=== PATIENT | female | born 1940 | race Caucasian/White ===

== ENCOUNTER 2016-07-25 10:25 | Outpatient (CLI) | payer MEDICARE, OTHER ==
[2016-07-25] MEDS ORDERED: IOPAMIDOL-300 50 ML VIAL PO ONE (12:14)
[2016-07-25] MEDS ORDERED: IOPAMIDOL-300 100 ML VIAL IVP ONE (12:14)
== END 2016-07-25 10:26 | disposition home or self-care (01) ==
DX: C56.9 Malignant neoplasm of unspecified ovary (principal); R16.1 Splenomegaly, not elsewhere classified; R19.04 Left lower quadrant abdominal swelling, mass and lump

== ENCOUNTER 2016-12-14 11:36 | Outpatient (CLI) | payer MEDICARE, OTHER ==
[2016-12-14] MEDS ORDERED: IOPAMIDOL-300 50 ML VIAL PO ONE (14:16)
[2016-12-14] MEDS ORDERED: IOPAMIDOL-300 100 ML VIAL IVP ONE (14:16)
--- NOTE | 2016-12-15 18:03 | CT Report ---
EXAM: CT CHEST EXAM DATE: 12/14/2016 02:16 PM. CLINICAL HISTORY: Ovarian cancer. COMPARISONS: 09/07/2015. TECHNIQUE: Routine helical CT imaging was performed through the chest. IV contrast: 100 mL of Isovue- 300. Reconstructions: Coronal and sagittal. In accordance with CT protocol optimization, one or more of the following dose reduction techniques w ere utilized for this exam: automated exposure control, adjustment of mA and/or KV based on patient s ize, or use of iterative reconstructive technique. FINDINGS: Lungs/Pleura: No nodules, bronchial thickening, consolidation, or edema. Pulmonary vasculature is nor mal. No pericardial or pleural effusion. No pneumothorax. Mediastinum: Aortic and coronary artery calcification noted.. No adenopathy or masses. The heart and great vessels are normal. Bones: Unremarkable. Upper Abdomen: Enlarging subcapsular splenic cystic collections. Other: Stable right thyroid nodularity. Fat stranding and air bubbles associated with right chest wal l port compatible with recent placement. Complex 2 cm fluid collection in the left breast compatible with prior surgery. 7 mm nodule in the lower outer right breast. IMPRESSION: 1. No sign of metastatic disease in the chest. 2. Evidence of recent right chest wall port placement. 3. Enlarging right breast nodule, and complex fluid collection in the left breast compatible with magnolia or biopsy. 4. Enlarging subcapsular fluid collections in the spleen. [facility] Referring Provider Line: [phone] SITE ID: [id number]
--- NOTE | 2016-12-18 12:48 | CT Report ---
REVISED: THIS REPORT WAS ORIGINALLY SIGNED ON 12/15/16 @ 1803. ORDERS LINKED ON 12/18/2016. EXAM: [id number] CT/TW ([id number]) EXAM: CT CHEST EXAM DATE: 12/14/2016 02:16 PM. CLINICAL HISTORY: Ovarian cancer. COMPARISONS: 09/07/2015. TECHNIQUE: Routine helical CT imaging was performed through the chest. IV contrast: 100 mL of Isovue-300. Reconstructions: Coronal and sagittal. In accordance with CT protocol optimization, one or more of the following dose reduction techniques were utilized for this exam: automated exposure control, adjustment of mA and/or KV based on patient size, or use of iterative reconstructive technique. FINDINGS: Lungs/Pleura: No nodules, bronchial thickening, consolidation, or edema. Pulmonary vasculature is normal. No pericardial or pleural effusion. No pneumothorax. Mediastinum: Aortic and coronary artery calcification noted.. No adenopathy or masses. The heart and great vessels are normal. Bones: Unremarkable. Upper Abdomen: Enlarging subcapsular splenic cystic collections. Other: Stable right thyroid nodularity. Fat stranding and air bubbles associated with right chest wall port compatible with recent placement. Complex 2 cm fluid collection in the left breast compatible with prior surgery. 7 mm nodule in the lower outer right breast. IMPRESSION: 1. No sign of metastatic disease in the chest. 2. Evidence of recent right chest wall port placement. 3. Enlarging right breast nodule, and complex fluid collection in the left breast compatible with prior biopsy. 4. Enlarging subcapsular fluid collections in the spleen. [facility] Referring Provider Line: [phone] SITE ID: [id number] Cold Press Operator: Reading Radiologist: Juan Diego Castillo MD Releasing Radiologist: Juan Diego Castillo MD Released Date Time: 12/15/161802 cc: Catalina Keita DO; Steve Valdez MD ADDENDUM ADDENDUM: 12/15/16 18:29 CT abdomen and pelvis with contrast: Scans are continued through the abdomen and pelvis after 100 mL of Isovue-300 with coronal and sagittal reformations. COMPARISON: 07/25/2016. FINDINGS: In the liver, stable subcentimeter low densities. The multilocular complex fluid collection in the spleen is larger, 6.1 cm across. The pancreas, adrenals, and kidneys are unremarkable. Small gallstones. No dilated ducts. No aortic enlargement, noting atherosclerotic calcification. Mild diverticulosis without diverticulitis. Calcified mesenteric lymph nodes. No adenopathy identified. No free air or free fluid. In the pelvis, hysterectomy noted. Unremarkable bladder. Enlarging lobular heterogeneously enhancing cul-de-sac mass, measuring roughly 5.1 x 6.1 x 5.3 cm. Enlarging soft tissue mass to the right of the cul-de-sac mass 3.0 x 3.1 x 2.6 cm. Stable soft tissue nodule along the right anterior bladder margin, measuring 2.3 x 2.0 x 2.2 cm. IMPRESSION: 1. Stable tiny subcentimeter low densities in the liver. 2. Mildly enlarging lobular complex splenic fluid collection. 3. Gallstones in the gallbladder. 4. Mildly enlarging heterogeneously enhancing cul-de-sac mass. 5. Stable soft tissue nodule along the right anterior bladder margin. 6. Enlarging mass to the right of the cul-de-sac abnormality. Referring Provider Line: [phone] SITE ID: [id number] Addendum Cold Press Operator: Addendum Reading Radiologist: Juan Diego Castillo MD Addendum Releasing Radiologist: Juan Diego Castillo MD Addendum Released Date Time: 12/15/161900 [facility]
== END 2016-12-14 11:37 | disposition home or self-care (01) ==
LOC: DI 11:36
PROVIDERS: ATTEND Specialist
DX: C56.1 Malignant neoplasm of right ovary (principal); N63 Unspecified lump in breast; K80.20 Calculus of gallbladder without cholecystitis without obstruction
CPT/HCPCS: 71260; 74177; Q9967

== ENCOUNTER 2017-02-03 08:29 | Outpatient (CLI) | payer MEDICARE, OTHER | END 2017-02-03 08:30 | disposition home or self-care (01) | LOC: DI 08:29 | PROVIDERS: ATTEND Internal Medicine Hematology & Oncology | DX: C56.9 Malignant neoplasm of unspecified ovary (principal) | CPT/HCPCS: 93306 ==

== ENCOUNTER 2017-07-11 11:16 | Outpatient (CLI) | payer MEDICARE, OTHER | END 2017-07-11 11:17 | disposition home or self-care (01) | LOC: DI 11:16 | PROVIDERS: ATTEND Internal Medicine Hematology & Oncology | DX: C56.9 Malignant neoplasm of unspecified ovary (principal) | CPT/HCPCS: 93306 ==

== ENCOUNTER 2017-07-30 07:36 | Outpatient (CLI) | payer MEDICARE, OTHER ==
[2017-07-30 12:55] LABS: CHOL/HDL RATIO 3.4 (<4.4); CHOLESTEROL 205 mg/dL; HDL CHOLESTEROL 60 mg/dL; LDL CHOLESTEROL,CALCULATED 121 mg/dL; VLDL CHOLESTEROL 24 mg/dL
== END 2017-07-30 07:37 | disposition home or self-care (01) ==
LOC: LAB.WCP 07:36
PROVIDERS: ATTEND Family Medicine
DX: E78.5 Hyperlipidemia, unspecified (principal); E55.9 Vitamin D deficiency, unspecified; I49.9 Cardiac arrhythmia, unspecified
CPT/HCPCS: 36415; 80061; 82306; 83721; 84443

== ENCOUNTER 2017-09-02 20:59 | Outpatient (CLI) | payer MEDICARE, OTHER ==
--- NOTE | 2017-09-02 23:19 | Ultrasound Preliminary Report ---
Exam: US DUPLEX EXT VEINS LEFT IMPRESSION: No evidence for deep venous thrombosis. See above. [facility] SITE ID: [id number]
--- NOTE | 2017-09-02 23:20 | Ultrasound Report ---
EXAM: LEFT LOWER EXTREMITY VENOUS ULTRASOUND EXAM DATE: 09/02/2017 09:40 PM. CLINICAL HISTORY: ANKLE PAIN, LEFT,LYMPHEDEMA,HX PULMONARY EMBOLISM. COMPARISON: 10/05/2015 ultrasound duplex extremity veins left. TECHNIQUE: Real-time sonographic vascular imaging was performed by the electric motor controls assembler through the lower extremity utilizing both color-flow and Doppler spectral analysis. Multiple service center representative static julieta ges were saved for review. FINDINGS: Common Femoral Vein (CFV): Normal. CFV-GSV Junction: Normal. Profunda Femoral Vein (PFV): Normal. Femoral Vein (FV) Prox: Normal. Femoral Vein (FV) Mid: Normal. Femoral Vein (FV) Dist: Normal. Popliteal Vein: Normal. Posterior Tibial Veins: Normal. Peroneal Veins: Normal. Limited visualization. IMPRESSION: No evidence for deep venous thrombosis. See above. [facility] Referring Provider Line: [phone] SITE ID: [id number]
== END 2017-09-02 21:00 | disposition home or self-care (01) ==
LOC: DI 20:59
PROVIDERS: ATTEND Family Medicine
DX: M25.572 Pain in left ankle and joints of left foot (principal); I89.0 Lymphedema, not elsewhere classified; Z86.711 Personal history of pulmonary embolism

== ENCOUNTER 2018-07-04 14:13 | Outpatient (CLI) | payer MEDICARE, OTHER | END 2018-07-04 14:14 | disposition critical access hospital (66) | LOC: EMS 14:13 | PROVIDERS: ATTEND Surgery | DX: R47.89 Other speech disturbances (principal) | CPT/HCPCS: A0425; A0429 ==

== ENCOUNTER 2018-07-04 14:28 | Emergency (ER) | payer MEDICARE, OTHER ==
--- NOTE | 2018-07-04 15:09 | ED Physician Documentation ---
PD HPI ALTERED MENTAL STATUS - Stated complaint Stated Complaint: CVA SX 2 TO 3 DAYS - Chief complaint Chief Complaint: Neuro - History obtained from History obtained from: Patient, Family - History of Present Illness Timing - onset: How many days ago (2-3 days of seeming to have incomplete thoughts, with some word search or distracted incomplete sentences. Today had an episode of seeming more confused when standing/walking in house, lasted few minutes. She was eating then at the time and seemed to improved shortly after. No facial droop nor unilateral weakness, per ammunition and explosives handler in ER.) Timing - duration: Days (2-3) Timing - details: Gradual onset, Waxing and waning Quality / character: Confused (with mostly trouble completing sentences, word search.) Associated symptoms: No: Fever, Headache, Dyspnea, Cough, NVD Contributing factors: No: Anticoagulated, Diabetic, Recent med change, Recent illness Basline status: Alert and oriented X 3, Ambulatory Similar symptoms before: Has not had sx before Recently seen: Not recently seen Review of Systems Ten Systems: 10 systems reviewed and negative Constitutional: denies: Fever Nose: denies: Rhinorrhea / runny nose, Congestion Throat: denies: Sore throat Respiratory: denies: Cough GI: denies: Vomiting, Diarrhea Skin: denies: Rash, Lesions Musculoskeletal: denies: Neck pain, Back pain Neurologic: reports: Difficulty speaking, Confused (briefly today). denies: Generalized weakness, Focal weakness, Numbness, Near syncope, Altered mental status, Headache PD PAST MEDICAL HISTORY - Past Medical History Cardiovascular: High cholesterol Respiratory: Sleep apnea, CPAP use Endocrine/Autoimmune: None GI: Chronic constipation UNIT CONTROL CLERK: Ovarian cancer : None HEENT: Other Psych: None Musculoskeletal: Osteoarthritis, Osteoporosis Derm: Other - Past Surgical History Past Surgical History: Yes General: Appendectomy, Colonoscopy Ortho: Other /UNIT CONTROL CLERK: Hysterectomy, Oophrectomy HEENT: Cataracts Derm: Skin cancer surgery - Present Medications Home Medications: Ambulatory Orders Medication Instructions Recorded Confirmed Aspirin 81 mg PO DAILY PM 02/25/14 07/04/18 Simvastatin 10 mg PO DAILY 02/25/14 07/04/18 Cholecalciferol (Vitamin D3) 800 unit PO DAILY 04/17/16 07/04/18 [Vitamin D] Rivaroxaban [Xarelto] 20 mg PO ONCE PRN 01/13/17 07/04/18 Atenolol 25 mg PO DAILY 06/23/17 07/04/18 Polyethylene Glycol 3350 [Miralax] 17 gm PO DAILY 10/20/17 06/15/18 Sennosides [Senna] 1 tab PO DAILY PRN 10/20/17 07/04/18 Multivitamin [Multivitamins] 1 tab ORAL DAILY 02/23/18 07/04/18 amLODIPine [Norvasc] 5 mg ORAL DAILY 05/01/18 07/04/18 - Allergies Allergies/Adverse Reactions: Allergies Allergy/AdvReac Type Severity Reaction Status Date / Time Sulfa (Sulfonamide Allergy Mild Rash Verified 07/04/18 15:34 Antibiotics) risedronate sodium AdvReac Cramps Verified 07/04/18 15:34 [From Actonel] - Social History Does the pt smoke?: No Smoking Status: Never smoker Does the pt drink ETOH?: Yes PD ED PE NORMAL - Vitals Vital signs reviewed: Yes - General General: Alert and oriented X 3, No acute distress, Well developed/nourished, Other (she does occasionally faulter towards end of thought and have frustration finding the word to complete the thought. Not consistent. Sentence structure is otherwise good. Articulation is clear. ) - HEENT HEENT: Atraumatic, PERRL, EOMI, Pharynx benign - Neck Neck: Supple, no meningeal sign, No adenopathy, No JVD, No bruit - Cardiac Cardiac: RRR, No murmur - Respiratory Respiratory: Clear bilaterally - Abdomen Abdomen: Soft, Non tender - Derm Derm: Normal color, Warm and dry - Extremities Extremities: Normal ROM s pain, No edema, No calf tenderness / cord - Neuro Neuro: Alert and oriented X 3, sales floor associate 2-12 intact, No motor deficit, No sensory deficit, Normal speech, Other Eye Opening: Spontaneous Motor: Obeys Commands Verbal: Oriented GCS Score: 15 - Psych Psych: Normal mood, Normal affect Results - Vitals Vitals: Oxygen O2 Source Room air - Labs Labs: Laboratory Tests 07/04/18 07/04/18 07/04/18 16:09 16:44 16:44 WBC 6.4 RBC 4.19 L Hgb 12.0 Hct 36.4 L MCV 87.1 MCH 28.8 MCHC 33.0 RDW 16.9 H Plt Count 172 MPV 8.0 Neut # (Auto) 4.7 Lymph # (Auto) 0.9 L Sharp # (Auto) 0.5 Eos # (Auto) 0.1 Baso # (Auto) 0.0 Absolute Nucleated RBC 0.00 Nucleated RBC % 0.0 ESR 30 Sodium 139 Potassium 3.9 Chloride 105 Carbon Dioxide 24 Anion Gap 10.0 BUN 30 H Creatinine 0.8 Estimated GFR (MDRD) 70 L Glucose 102 H Calcium 9.3 Magnesium 2.1 Total Bilirubin 0.8 AST 21 ALT 15 Alkaline Phosphatase 80 Total Protein 6.5 L Albumin 3.6 Globulin 2.9 Albumin/Globulin Ratio 1.2 Lipase 23 - Rads (name of study) head CT Radiology: Prelim report reviewed (no acute process), See rad report neck and head angio Radiology: Prelim report reviewed (no significant stenoses nor acute process. ) PD MEDICAL DECISION MAKING - ED course Complexity details: considered differential (not sure if the confused earlier today was cerebrovascular or general perfusion. Sentence completion problem for 2-3 days not clear etiology. No noted CVA nor vascular insufficiency. No heart murmur and is NSR. Can see PMD for recheck and any further workup (? brain MRI).), d/w patient Departure - Departure Disposition: 01 Home, Self Care Clinical Impression: Altered mental status Qualifiers: Altered mental status type: unspecified Qualified Code(s): R41.82 - Altered mental status, unspecified Condition: Stable Record reviewed to determine appropriate education?: Yes Follow-Up: Catalina Keita DO [Primary Care Provider] - Comments: Continue usual medications including the baby aspirin daily. Stay well-h ydrated. Your head CT and angiogram appear normal without any limitations of flow or narrowed areas. There is no signs of stroke at this time. There is no bleeding or swelling or tumors. Your blood tests and blood pressure were good. It's clear if your symptoms were related to brain abnormality such as TIA or more likely a transient impairment in general brain function such as a drop in blood pressure or blood sugar (though you had eaten). Follow-up with your primary care later this week. Return if recurring symptoms. Discharge Date/Time: 07/04/18 19:29
[2018-07-04] MEDS ORDERED: SODIUM CHLORIDE 0.9% 1,000 ML IV ONE (16:16)
[2018-07-04] MEDS ORDERED: IOPAMIDOL-300 100 ML VIAL ONE ×2 (16:29→17:11)
[2018-07-04 16:54] LABS: BASOPHILS % (AUTO) 0.8 %; EOSINOPHILS # (AUTO) 0.1 10^3/uL (0.0-0.7); EOSINOPHILS % (AUTO) 1.4 %; LYMPHOCYTES # (AUTO) 0.9 10^3/uL (1.5-3.5); LYMPHOCYTES % (AUTO) 14.8 %; MEAN CORPUSCULAR HEMOGLOBIN 28.8 pg (27.0-31.0); MEAN CORPUSCULAR VOLUME 87.1 fL (81.0-99.0); MONOCYTES # (AUTO) 0.5 10^3/uL (0.0-1.0); MONOCYTES % (AUTO) 8.5 %; NEUTROPHILS # (AUTO) 4.7 10^3/uL (1.5-6.6); NEUTROPHILS % (AUTO) 74.5 %; PLT - PLATELET COUNT 172 10^3/uL (130-450); RED BLOOD COUNT 4.19 10^6/uL (4.20-5.40); RED CELL DISTRIBUTION WIDTH 16.9 % (12.0-15.0); WHITE BLOOD COUNT 6.4 x10^3/uL (4.8-10.8)
[2018-07-04 17:04] LABS: ALBUMIN 3.6 g/dL (3.2-5.5); ALBUMIN/GLOBULIN RATIO 1.2 (1.0-2.2); BILIRUBIN,TOTAL 0.8 mg/dL (0.2-1.0); CALCIUM 9.3 mg/dL (8.5-10.3); CREATININE 0.8 mg/dL (0.4-1.0); MAGNESIUM 2.1 mg/dL (1.7-2.8); TOTAL PROTEIN 6.5 g/dL (6.7-8.2)
[2018-07-04] MEDS: IOPAMIDOL-300 100 ML VIAL IVP ONE ×2 (18:25→18:26)
--- NOTE | 2018-07-04 18:43 | CT Report ---
Reason: confused for 20 minutes Procedure Date: 07/04/2018 Accession Number: [id number] / [id number] Procedure: CT - HEAD WO CPT Code: FULL RESULT: EXAM: CT ANGIOGRAM HEAD AND NECK. CT SCAN HEAD WITHOUT CONTRAST. EXAM DATE:07/04/2018 04:54 PM. CLINICAL HISTORY:77-year-old presenting with 25 minutes of confusion. Evaluate for intracranial pathology or vascular pathology. COMPARISON:None. TECHNIQUE: Routine axial helical CTA imaging was performed from the aortic arch through the [place] of [place]. Routine axial CT imaging of the head was performed prior to contrast administration. Reconstructions: Routine multiplanar 3D MIP reconstructions. IV contrast: Isovue 300 80 mL. NASCET Criteria are used for stenosis measurements. In accordance with CT protocol optimization, one or more of the following dose reduction techniques were utilized for this exam: automated exposure control, adjustment of mA and/or KV based on patient size, or use of iterative reconstructive technique. FINDINGS: CT SCAN HEAD: Parenchyma: No acute parenchymal hemorrhage, mass, or midline shift. There appears to be mild to moderate bilateral areas of white matter hypoattenuation seen that are age-indeterminate but appear chronic. There is no convincing CT evidence of acute infarct. There is punctate foci of hyperdensity seen within bilateral globus pallidus likely presenting mineralization. Cortical volume appears age-appropriate. Extraaxial Spaces: Normal for age. No subdural or epidural collections identified. Ventricles: Normal in size and position. Sinuses and Orbits: Changes of bilateral lens replacement. Mild mucosal thickening of the right maxillary sinus with small mucosal retention cyst versus polyp seen. Small to moderate left maxillary mucosal retention cyst versus polyp. Mastoid air cells and middle air cavities are clear. Bones: No evidence of fracture or calvarial defect. Other: Vascular calcifications of the cavernous ICA segments. CT ANGIOGRAM HEAD AND NECK: Moderate to severe atherosclerotic plaque involving the aortic arch. There appears to be normal three-vessel takeoff of the great vessels. There is atherosclerotic plaque involving the right and left subclavian arteries with no definite stenosis seen. RIGHT: Common Carotid Artery: Patent without significant stenosis. Carotid Bulb: There is minimal atherosclerotic plaque at the bifurcation and siphon. Stenosis at the bifurcation by NASCET criteria: No significant stenosis. Internal Carotid Artery: Tortuosity of the cervical ICA with no high-grade stenosis or dissection seen. Vascular calcifications of the cavernous ICA segments with no high-grade stenosis. No evidence of aneurysm along the intracranial ICA. External Carotid Artery: Unremarkable. Vertebral Artery: Patent without significant stenosis. No evidence of dissection. No aneurysm. Anterior Cerebral Artery: Patent without significant stenosis, aneurysm, or vascular malformation. Middle Cerebral Artery: Patent without significant stenosis, aneurysm, or vascular malformation. Posterior Cerebral Artery: Patent without significant stenosis, aneurysm, or vascular malformation. Posterior Communicating Artery: Not definitively seen. No aneurysm. LEFT: Common Carotid Artery: Patent without significant stenosis. Carotid Bulb: There is mild atherosclerotic plaque at the bifurcation and siphon. Stenosis at the bifurcation by NASCET criteria: 0 percent. Internal Carotid Artery: Tortuosity of the cervical ICA with no high-grade stenosis or dissection seen. Vascular calcifications of the cavernous ICA segments with no high-grade stenosis. No evidence of aneurysm along the intracranial ICA. External Carotid Artery: Unremarkable. Vertebral Artery: Patent without significant stenosis. No evidence of dissection. No aneurysm. Anterior Cerebral Artery: Patent without significant stenosis, aneurysm, or vascular malformation. Middle Cerebral Artery: Mild to moderate stenosis of the P1 segment of the left BLEACHING SUPERVISOR. Distal BLEACHING SUPERVISOR branches appear normal. No aneurysm. Posterior Cerebral Artery: Patent without significant stenosis, aneurysm, or vascular malformation. Posterior Communicating Artery: Not definitively seen. No aneurysm. CENTRAL: Anterior Communicating Artery: Patent. No aneurysm. Basilar Artery: Patent without significant stenosis. No aneurysm. DURAL VENOUS SINUSES AND MAJOR CENTRAL VEINS: Patent. OTHER: Punctate calcification seen within the tonsillar crypts. Otherwise the visualized pharynx and larynx appear normal. Major salivary glands appear normal. Right thyroid lobe hypodensity seen measuring up to 11 mm (series 4, image 130). No cervical lymphadenopathy or necrotic lymph nodes seen. Soft tissues of the neck appear normal. Pleural parenchymal scarring of the visualized lung apices. No definite pulmonary nodules or mass is seen. No acute fracture or traumatic subluxation of the cervical spine. Multilevel degenerative changes. No suspicious osseous lesion. IMPRESSION: CT SCAN HEAD: 1. No definite acute infarct seen. If there is clinical concern for acute stroke or symptoms persist an MR brain could be considered to evaluate for small or subtle pathology. ASPECTS 10R/10L 2. No acute intracranial hemorrhage, mass, hydrocephalus, or midline shift. 3. There appear to be mild to moderate white matter changes that appear chronic suggesting potential sequela of chronic small vessel ischemic disease. CT ANGIOGRAM NECK: 1. The vasculature of the neck demonstrates no significant stenosis, dissection, or pseudoaneurysm formation. CT ANGIOGRAM HEAD: 1. No large vessel occlusion. 2. There appears to be mild to moderate stenosis of the P1 segment of the left BLEACHING SUPERVISOR. 3. No intracranial aneurysm. [facility]
--- NOTE | 2018-07-04 18:43 | CT Report ---
Reason: confused for 20 minutes around 1 pm Procedure Date: 07/04/2018 Accession Number: [id number] / [id number] Procedure: CT - ANGIO NECK W/WO CPT Code: FULL RESULT: EXAM: CT ANGIOGRAM HEAD AND NECK. CT SCAN HEAD WITHOUT CONTRAST. EXAM DATE:07/04/2018 04:54 PM. CLINICAL HISTORY:77-year-old presenting with 25 minutes of confusion. Evaluate for intracranial pathology or vascular pathology. COMPARISON:None. TECHNIQUE: Routine axial helical CTA imaging was performed from the aortic arch through the [place] of [place]. Routine axial CT imaging of the head was performed prior to contrast administration. Reconstructions: Routine multiplanar 3D MIP reconstructions. IV contrast: Isovue 300 80 mL. NASCET Criteria are used for stenosis measurements. In accordance with CT protocol optimization, one or more of the following dose reduction techniques were utilized for this exam: automated exposure control, adjustment of mA and/or KV based on patient size, or use of iterative reconstructive technique. FINDINGS: CT SCAN HEAD: Parenchyma: No acute parenchymal hemorrhage, mass, or midline shift. There appears to be mild to moderate bilateral areas of white matter hypoattenuation seen that are age-indeterminate but appear chronic. There is no convincing CT evidence of acute infarct. There is punctate foci of hyperdensity seen within bilateral globus pallidus likely presenting mineralization. Cortical volume appears age-appropriate. Extraaxial Spaces: Normal for age. No subdural or epidural collections identified. Ventricles: Normal in size and position. Sinuses and Orbits: Changes of bilateral lens replacement. Mild mucosal thickening of the right maxillary sinus with small mucosal retention cyst versus polyp seen. Small to moderate left maxillary mucosal retention cyst versus polyp. Mastoid air cells and middle air cavities are clear. Bones: No evidence of fracture or calvarial defect. Other: Vascular calcifications of the cavernous ICA segments. CT ANGIOGRAM HEAD AND NECK: Moderate to severe atherosclerotic plaque involving the aortic arch. There appears to be normal three-vessel takeoff of the great vessels. There is atherosclerotic plaque involving the right and left subclavian arteries with no definite stenosis seen. RIGHT: Common Carotid Artery: Patent without significant stenosis. Carotid Bulb: There is minimal atherosclerotic plaque at the bifurcation and siphon. Stenosis at the bifurcation by NASCET criteria: No significant stenosis. Internal Carotid Artery: Tortuosity of the cervical ICA with no high-grade stenosis or dissection seen. Vascular calcifications of the cavernous ICA segments with no high-grade stenosis. No evidence of aneurysm along the intracranial ICA. External Carotid Artery: Unremarkable. Vertebral Artery: Patent without significant stenosis. No evidence of dissection. No aneurysm. Anterior Cerebral Artery: Patent without significant stenosis, aneurysm, or vascular malformation. Middle Cerebral Artery: Patent without significant stenosis, aneurysm, or vascular malformation. Posterior Cerebral Artery: Patent without significant stenosis, aneurysm, or vascular malformation. Posterior Communicating Artery: Not definitively seen. No aneurysm. LEFT: Common Carotid Artery: Patent without significant stenosis. Carotid Bulb: There is mild atherosclerotic plaque at the bifurcation and siphon. Stenosis at the bifurcation by NASCET criteria: 0 percent. Internal Carotid Artery: Tortuosity of the cervical ICA with no high-grade stenosis or dissection seen. Vascular calcifications of the cavernous ICA segments with no high-grade stenosis. No evidence of aneurysm along the intracranial ICA. External Carotid Artery: Unremarkable. Vertebral Artery: Patent without significant stenosis. No evidence of dissection. No aneurysm. Anterior Cerebral Artery: Patent without significant stenosis, aneurysm, or vascular malformation. Middle Cerebral Artery: Mild to moderate stenosis of the P1 segment of the left VISUAL JOURNALIST. Distal VISUAL JOURNALIST branches appear normal. No aneurysm. Posterior Cerebral Artery: Patent without significant stenosis, aneurysm, or vascular malformation. Posterior Communicating Artery: Not definitively seen. No aneurysm. CENTRAL: Anterior Communicating Artery: Patent. No aneurysm. Basilar Artery: Patent without significant stenosis. No aneurysm. DURAL VENOUS SINUSES AND MAJOR CENTRAL VEINS: Patent. OTHER: Punctate calcification seen within the tonsillar crypts. Otherwise the visualized pharynx and larynx appear normal. Major salivary glands appear normal. Right thyroid lobe hypodensity seen measuring up to 11 mm (series 4, image 130). No cervical lymphadenopathy or necrotic lymph nodes seen. Soft tissues of the neck appear normal. Pleural parenchymal scarring of the visualized lung apices. No definite pulmonary nodules or mass is seen. No acute fracture or traumatic subluxation of the cervical spine. Multilevel degenerative changes. No suspicious osseous lesion. IMPRESSION: CT SCAN HEAD: 1. No definite acute infarct seen. If there is clinical concern for acute stroke or symptoms persist an MR brain could be considered to evaluate for small or subtle pathology. ASPECTS 10R/10L 2. No acute intracranial hemorrhage, mass, hydrocephalus, or midline shift. 3. There appear to be mild to moderate white matter changes that appear chronic suggesting potential sequela of chronic small vessel ischemic disease. CT ANGIOGRAM NECK: 1. The vasculature of the neck demonstrates no significant stenosis, dissection, or pseudoaneurysm formation. CT ANGIOGRAM HEAD: 1. No large vessel occlusion. 2. There appears to be mild to moderate stenosis of the P1 segment of the left VISUAL JOURNALIST. 3. No intracranial aneurysm. [facility]
[2018-07-04 19:24] VITALS: BP 179/80
== END 2018-07-04 19:29 | disposition home or self-care (01) ==
LOC: EDUNIT# → ED 14:28
DX: R41.82 Altered mental status, unspecified (principal); E78.00 Pure hypercholesterolemia, unspecified; I44.0 Atrioventricular block, first degree; Z85.43 Personal history of malignant neoplasm of ovary; Z90.721 Acquired absence of ovaries, unilateral; Z79.82 Long term (current) use of aspirin
CPT/HCPCS: 36415; 70450; 70496; 70498; 80053; 83690; 83735; 85025; 85651; 93005; 96360; 96361; 99283; 99284; Q9967

== ENCOUNTER 2018-07-20 09:18 | Emergency (ER) | payer MEDICARE, OTHER ==
[2018-07-20 09:51] VITALS: BP 171/96
--- NOTE | 2018-07-20 11:11 | ED Physician Documentation ---
History of Present Illness - Stated complaint Stated Complaint: HIGH BP/CHEMO PT - Chief complaint Chief Complaint: Cardiac - History obtained from History obtained from: Patient - History of Present Illness Timing: Other (77-year-old woman who presents with her for elevated blood pressure that is asymptomatic. She was seen last week for some confusion which she said was actually chronic with mild word finding difficulties and memory issues. Since then she saw her physician who increased her statin and then her oncologist who told her to double her lisinopril this morning noticed that her systolic was 200 this morning and presents for evaluation. There is no associated chest pain, urinary complaint, shortness of breath, or new pedal edema. 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: Ovarian cancer : None HEENT: Other Psych: None Musculoskeletal: Osteoarthritis, Osteoporosis Derm: Other - Past Surgical History Past Surgical History: Yes General: Appendectomy, Colonoscopy Ortho: Other /ALTERNATIVE FINANCING SPECIALIST: Hysterectomy, Oophrectomy HEENT: Cataracts Derm: Skin cancer surgery - Present Medications Home Medications: Ambulatory Orders Medication Instructions Recorded Confirmed Aspirin 81 mg PO DAILY PM 02/25/14 07/04/18 Simvastatin 10 mg PO DAILY 02/25/14 07/04/18 Cholecalciferol (Vitamin D3) 800 unit PO DAILY 04/17/16 07/04/18 [Vitamin D] Rivaroxaban [Xarelto] 20 mg PO ONCE PRN 01/13/17 07/04/18 Atenolol 25 mg PO DAILY 06/23/17 07/04/18 Polyethylene Glycol 3350 [Miralax] 17 gm PO DAILY 10/20/17 06/15/18 Sennosides [Senna] 1 tab PO DAILY PRN 10/20/17 07/04/18 Multivitamin [Multivitamins] 1 tab ORAL DAILY 02/23/18 07/04/18 amLODIPine [Norvasc] 5 mg ORAL DAILY 05/01/18 07/04/18 - Allergies Allergies/Adverse Reactions: Allergies Allergy/AdvReac Type Severity Reaction Status Date / Time Sulfa (Sulfonamide Allergy Mild Rash Verified 07/04/18 15:34 Antibiotics) risedronate sodium AdvReac Cramps Verified 07/20/18 09:51 [From Actonel] - Social History Does the pt smoke?: No Smoking Status: Never smoker Does the pt drink ETOH?: Yes Does the pt have substance abuse?: No - Immunizations Immunizations are current?: No Immunizations: TDAP >10years/unknown - POLST Patient has POLST: No PD ED PE NORMAL - Vitals Vital signs reviewed: Yes - General General: Alert and oriented X 3, No acute distress - HEENT HEENT: PERRL, EOMI - Neck Neck: Supple, no meningeal sign, No bony TTP - Cardiac Cardiac: RRR, No murmur - Respiratory Respiratory: No respiratory distress, Clear bilaterally - Abdomen Abdomen: Non tender - Extremities Extremities: No edema, No calf tenderness / cord - Neuro Neuro: Alert and oriented X 3, Normal speech Results - Vitals Vitals: Vital Signs - 24 hr 07/20/18 09:45 Temperature 36.4 C L Heart Rate 85 Respiratory 18 Rate Blood Pressure 171/96 H O2 Saturation 97 Oxygen O2 Source Room air PD MEDICAL DECISION MAKING - ED course ED course: This is a 77-year-old woman who presents to the emergency department with asym ptomatic elevated blood pressure. Her oncologist just recommended to increase her lisinopril from 10 mg daily to 20 mg daily this morning. I discussed with her that that seems like a reasonable first step and that this step was just taken and therefore we should not take any further steps today and she should monitor her blood pressures and follow-up with her primary care in a week. Departure - Departure Disposition: 01 Home, Self Care Clinical Impression: Essential hypertension Condition: Good Record reviewed to determine appropriate education?: Yes Instructions: ED HTN Established Comments: I think the advice were given by Dr. Willingham this morning to increase her lisinopril from 10 mg a day to 20 mg a day is an excellent stepup. Check your blood pressures once a daily and report to Dr. Keita in a week. Return for new symptoms, as discussed especially chest pain, shortness of breath, urinary complaints, leg swelling, or confusion.
== END 2018-07-20 11:15 | disposition home or self-care (01) ==
LOC: ED 09:18
DX: I10 Essential (primary) hypertension (principal); Z79.82 Long term (current) use of aspirin; Z79.01 Long term (current) use of anticoagulants; Z85.43 Personal history of malignant neoplasm of ovary
CPT/HCPCS: 99282

== ENCOUNTER 2018-07-24 10:48 | Outpatient (CLI) | payer MEDICARE, OTHER ==
[2018-07-24 19:39] LABS: ALBUMIN 3.6 g/dL (3.2-5.5); ALBUMIN/GLOBULIN RATIO 1.4 (1.0-2.2); BILIRUBIN,TOTAL 1.2 mg/dL (0.2-1.0); CALCIUM 9.9 mg/dL (8.5-10.3); CREATININE 0.7 mg/dL (0.4-1.0); TOTAL PROTEIN 6.2 g/dL (6.7-8.2)
== END 2018-07-24 23:59 | disposition home or self-care (01) ==
LOC: LAB.WCP 10:48
PROVIDERS: ATTEND Family Medicine
DX: I10 Essential (primary) hypertension (principal)
CPT/HCPCS: 36415; 80053; 82088; 84244

== ENCOUNTER 2018-08-05 08:47 | Outpatient (CLI) | payer MEDICARE, OTHER ==
--- NOTE | 2018-08-05 11:31 | MRI Report ---
Reason: CONFUSION, HTN, TIA, CARDIAC ARRHYTHMIA, OVARIAN C Procedure Date: 08/05/2018 Accession Number: [id number] / [id number] Procedure: MRI - Brain W/O CPT Code: FULL RESULT: EXAM: MRI BRAIN WITHOUT CONTRAST EXAM DATE: 08/05/2018 10:35 AM. CLINICAL HISTORY: Confusion. TIA. COMPARISON: No prior brain MRI. TECHNIQUE: Multiplanar, multisequence T1-weighted and fluid-sensitive MR sequences of the brain were performed. Sequences optimized for routine evaluation. Other: None. IV Contrast: None. FINDINGS: No restricted diffusion to suggest acute or recent ischemic infarct. No cerebral hemorrhage or hydrocephalus. Mild age-related brain volume loss. No midline shift or abnormal subdural fluid collection. Moderate chronic-appearing cerebral white matter disease. Findings are nonspecific, but suggestive of aging and chronic microangiopathy. Mucosal thickening with retention cysts in the maxillary sinuses. No focal or pathologic-appearing marrow signal changes in the skull or clivus. IMPRESSION: 1. No acute abnormality, no acute infarct or hemorrhage. 2. Chronic-appearing age-related changes. RADIA
== END 2018-08-05 08:48 | disposition home or self-care (01) ==
LOC: DI 08:47
PROVIDERS: ATTEND Family Medicine
DX: G45.9 Transient cerebral ischemic attack, unspecified (principal); R41.0 Disorientation, unspecified; I10 Essential (primary) hypertension; I49.9 Cardiac arrhythmia, unspecified; C56.9 Malignant neoplasm of unspecified ovary
CPT/HCPCS: 70551; 93306

== ENCOUNTER 2018-12-09 08:05 | Outpatient (CLI) | payer MEDICARE, OTHER ==
--- NOTE | 2018-12-09 20:43 | Ultrasound Report ---
Reason: ELEVATED CREATININE Procedure Date: 12/09/2018 Accession Number: [id number] / [id number] Procedure: US - Retroperitoneal CPT Code: FULL RESULT: EXAM: RENAL ULTRASOUND EXAM DATE: 12/09/2018 09:24 AM. CLINICAL HISTORY: Elevated creatinine. History of ovarian cancer. COMPARISON: ABDOMEN/PELVIS W10/26/2018 11:01 AM. TECHNIQUE: Real-time scanning was performed with static images obtained. FINDINGS: Right Kidney: 10.7 x 6.5 x 4.7 cm. Normal echotexture with no stones, contour-deforming masses, or hydronephrosis. Left Kidney: 12.0 x 4.1 x 4.8 cm. Normal echotexture with no stones, contour-deforming masses, or hydronephrosis. Bladder: Bilateral jets seen. The prevoid bladder volume was 40 cc. The postvoid bladder volume was 24 cc. There is a cystic structure adjacent to the anterior right margin of the bladder measuring 3.0 x 1.9 x 2.1 cm corresponding with a cystic structure demonstrated on the prior CT exam, measured as up to 3.4 cm. Other: None. IMPRESSION: 1. Normal ultrasound of the kidneys. 2. Cystic structure again demonstrated adjacent to the right anterior aspect of the bladder measuring up to 3.0 cm, reported as 3.[address]. RADIA
== END 2018-12-09 08:06 | disposition home or self-care (01) ==
LOC: DI 08:05
PROVIDERS: ATTEND Physician Assistant
DX: N32.89 Other specified disorders of bladder (principal); R94.4 Abnormal results of kidney function studies
CPT/HCPCS: 76770

== ENCOUNTER 2018-12-15 08:00 | Outpatient (CLI) | payer MEDICARE, OTHER | END 2018-12-15 23:59 | disposition home or self-care (01) | LOC: LAB.WCP 08:00 | PROVIDERS: ATTEND Family Medicine | DX: I10 Essential (primary) hypertension (principal) | CPT/HCPCS: 36415; 84443 ==

== ENCOUNTER 2018-12-16 08:00 | Outpatient (CLI) | payer MEDICARE, OTHER | END 2018-12-16 23:59 | disposition home or self-care (01) | LOC: LAB.R 08:00 | PROVIDERS: ATTEND Family Medicine | DX: I10 Essential (primary) hypertension (principal) | CPT/HCPCS: 81599; 82530 ==

== ENCOUNTER 2018-12-17 08:00 | Outpatient (CLI) | payer MEDICARE, OTHER | END 2018-12-17 23:59 | disposition home or self-care (01) | LOC: LAB.R 08:00 | PROVIDERS: ATTEND Family Medicine | DX: I10 Essential (primary) hypertension (principal) | CPT/HCPCS: 81599; 82384; 83835 ==

== ENCOUNTER 2018-12-18 08:00 | Outpatient (CLI) | payer MEDICARE, OTHER | END 2018-12-18 23:59 | disposition home or self-care (01) | LOC: LAB.R 08:00 | PROVIDERS: ATTEND Family Medicine | DX: I10 Essential (primary) hypertension (principal) | CPT/HCPCS: 81599 ==

== ENCOUNTER 2018-12-25 07:06 | Outpatient (CLI) | payer MEDICARE, OTHER ==
--- NOTE | 2018-12-29 10:49 | Ultrasound Report ---
Reason: HYPERTENSION, BENIGN ESSENTIAL Procedure Date: 12/25/2018 Accession Number: [id number] / [id number] Procedure: US - Arterial Visceral Complete CPT Code: FULL RESULT: EXAM: RENAL ARTERY DOPPLER ULTRASOUND EXAM DATE: 12/25/2018 10:01 AM. CLINICAL HISTORY: Hypertension, benign essential. COMPARISON: RETROPERITONEAL 12/09/2018 8:07 AM ABDOMEN/PELVIS W/ 10/26/2018 11:01 AM. TECHNIQUE: Real-time sonographic vascular imaging was performed by the health concierge through the renal arterial system with a linear transducer utilizing color-flow, Doppler flow, and spectral analysis. Multiple service representative static images were saved for review. FINDINGS: Study technically limited due to bowel gas. Right Kidney: 10.9 x 5.8 x 6.0 cm. No significant abnormality. Right Segmental Artery: Upper pole: PSV 30.2 cm/sec, RI 0.75. Mid pole: PSV 33.5 cm/sec, RI 0.79. Lower pole: PSV 37.6 cm/sec, RI 0.78. Right Renal Artery: Origin: PSV 129 cm/sec, RA/AO 1.2. Proximal: PSV 165 cm/sec, RA/AO 1.5. Mid: PSV 210 cm/sec, RA/AO 1.9. Distal: PSV 108 cm/sec, RA/AO 1.0. Aorta PSV: 106 cm/sec. RRV Patent: Yes. Left Kidney: 11.6 x 5.9 x 4.8 cm. No significant abnormality. Left Segmental Artery: Upper pole: PSV 39 cm/sec, RI 0.78. Mid pole: PSV 55 cm/sec, RI 0.79. Lower pole: PSV 31 cm/sec, RI 0.76. Left Renal Artery: Origin: PSV 206 cm/sec, RA/AO 1.9. Proximal: PSV 253 cm/sec, RA/AO 2.3. Mid: PSV 35 cm/sec, RA/AO 0.33. Distal: PSV 82 cm/sec, RA/AO 0.77. LRV Patent: Yes. IMPRESSION: Based on peak systolic velocities findings on the left suggest a less than 60% renal artery diameter reduction. Renal artery peak systolic velocities on the right are within the normal range.. CRITERIA FOR CLASSIFICATION OF RENAL ARTERY (RA) DISEASE BY DUPLEX SCANNING: RA Diameter Reduction/ RA PSV/ RAR: Normal, < 180 cm/sec, < 3.5 < 60%, >= 180 cm/sec, < 3.5 >= 60%, >= 180 cm/sec, >= 3.5 Total Occlusion: Undetectable; Not applicable RADIA
== END 2018-12-25 07:07 | disposition home or self-care (01) ==
LOC: DI 07:06
PROVIDERS: ATTEND Family Medicine
DX: I10 Essential (primary) hypertension (principal)
CPT/HCPCS: 93975

== ENCOUNTER 2018-12-30 09:06 | Outpatient (CLI) | payer MEDICARE, OTHER ==
[2018-12-30 09:56] LABS: CREATININE,URINE 81.7 mg/dL; PROTEIN/CREATININE RATIO,URINE 1.6 (<=0.2)
== END 2018-12-30 09:07 | disposition home or self-care (01) ==
LOC: LAB 09:06
PROVIDERS: ATTEND Internal Medicine Nephrology
DX: R80.9 Proteinuria, unspecified (principal)
CPT/HCPCS: 82570; 84156

== ENCOUNTER 2019-01-02 17:49 | Inpatient (IN) | payer MEDICARE, OTHER ==
[2019-01-02] MEDS ORDERED: NITROGLYCERIN 50 MG/250 ML 50 MG/250 ML BOTTLE IV STA (18:11)
--- NOTE | 2019-01-02 18:14 | ED Physician Documentation ---
History of Present Illness - Stated complaint Stated Complaint: BLOOD PRESSURE - Chief complaint Chief Complaint: General - History obtained from History obtained from: Patient (88-year-old woman with history of metastatic ovarian cancer and remote PE presents with inexplicable shortness of breath since yesterday with nausea. She has orthopnea with it. She also has pedal edema which is worse than normal. She always has some level of left pedal edema from a prior ankle fracture and always wears a compression stocking there but now has more right pedal edema. The left is basically at its baseline. She denies any chest pain. No real cough.) Review of Systems Ten Systems: 10 systems reviewed and negative Constitutional: reports: Fatigue. denies: Fever, Chills Cardiac: reports: Pedal edema. denies: Chest pain / pressure, Palpitations, Calf pain Respiratory: reports: Dyspnea. 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: Ovarian cancer : None HEENT: Other Psych: None Musculoskeletal: Osteoarthritis, Osteoporosis Derm: Other - Past Surgical History Past Surgical History: Yes General: Appendectomy, Colonoscopy Ortho: Other /WRAPPER STRIPPER: Hysterectomy, Oophrectomy HEENT: Cataracts Derm: Skin cancer surgery - Present Medications Home Medications: Ambulatory Orders Medication Instructions Recorded Confirmed Aspirin 81 mg PO DAILY PM 02/25/14 12/29/18 Cholecalciferol (Vitamin D3) 800 unit PO DAILY 04/17/16 12/29/18 [Vitamin D] Rivaroxaban [Xarelto] 20 mg PO ONCE PRN 01/13/17 12/29/18 Atenolol 75 mg PO DAILY 06/23/17 12/29/18 Polyethylene Glycol 3350 [Miralax] 17 gm PO DAILY 10/20/17 12/29/18 Sennosides [Senna] 1 tab PO DAILY PRN 10/20/17 12/29/18 Multivitamin [Multivitamins] 1 tab ORAL DAILY 02/23/18 12/29/18 Lisinopril 40 mg PO DAILY 07/22/18 12/29/18 Atorvastatin Calcium 20 mg PO DAILY 08/10/18 12/29/18 Furosemide 40 mg PO DAILY 08/10/18 12/29/18 hydrALAZINE [Apresoline] 20 mg PO BID 10/05/18 12/29/18 Spironolactone 100 mg PO BID 11/30/18 12/29/18 - Allergies Allergies/Adverse Reactions: Allergies Allergy/AdvReac Type Severity Reaction Status Date / Time Sulfa (Sulfonamide Allergy Mild Rash Verified 12/29/18 09:30 Antibiotics) risedronate sodium AdvReac Cramps Verified 12/29/18 09:30 [From Actonel] - Social History Does the pt smoke?: No Smoking Status: Never smoker Does the pt drink ETOH?: Yes Does the pt have substance abuse?: No - Family History Family history: reports: Non contributory - Immunizations Immunizations are current?: No Immunizations: TDAP >10years/unknown - POLST Patient has POLST: No PD ED PE NORMAL - Vitals Vital signs reviewed: Yes - General General: Alert and oriented X 3, Other (She appears breathless, she is tachycardic with tachypnea, hypertension, and low pulse oximetry.) - HEENT HEENT: PERRL, EOMI - Neck Neck: Supple, no meningeal sign, No bony TTP - Cardiac Cardiac: Other (Tachycardic but regular without murmur) - Respiratory Respiratory: Other (Diminished at the bases but grossly clear, no JVD) - Abdomen Abdomen: Soft, Non tender - Back Back: No CVA TTP, No spinal TTP - Derm Derm: Normal color, Warm and dry - Extremities Extremities: Other (Moderate right-sided pedal edema which is pitting, nontender calf) - Neuro Neuro: Alert and oriented X 3, Normal speech Results - Vitals Vitals: Vital Signs - 24 hr 01/02/19 01/02/19 01/02/19 18:03 18:21 18:39 Temperature 36.2 C L Heart Rate 114 H 89 99 Respiratory 28 H 24 24 Rate Blood Pressure 241/146 H 218/110 H 217/115 H O2 Saturation 88 L 94 96 01/02/19 01/02/19 01/02/19 19:09 19:35 20:00 Temperature Heart Rate 94 118 H 99 Respiratory 18 24 20 Rate Blood Pressure 209/136 H 203/160 H 213/119 H O2 Saturation 95 94 96 01/02/19 01/02/19 01/02/19 20:10 20:14 20:30 Temperature 37.0 C Heart Rate 90 90 Respiratory 26 H 20 Rate Blood Pressure 190/135 H 226/131 H O2 Saturation 96 96 01/02/19 01/02/19 01/02/19 20:59 21:00 21:30 Temperature 37.0 C Heart Rate 88 76 Respiratory 19 20 Rate Blood Pressure 211/124 H 103/60 O2 Saturation 94 96 Oxygen O2 Source Room air Oxygen Flow Rate 2 - EKG (time done) 1807 Rate: Rate (enter#) (114) Rhythm: Sinus tachycardia [place]: Normal Intervals: Normal [place] QRS: Normal Ischemia: Normal ST segments Computer interpretation: Agree with computer - Labs Labs: Laboratory Tests 01/02/19 01/02/19 01/02/19 18:20 18:20 18:20 WBC 6.4 RBC 3.68 L Hgb 11.1 L Hct 34.2 L MCV 92.9 MCH 30.2 MCHC 32.5 RDW 15.4 H Plt Count 86 L MPV 10.7 Neut # (Auto) 4.9 Lymph # (Auto) 1.0 L [place] # (Auto) 0.4 Eos # (Auto) 0.0 Baso # (Auto) 0.0 Absolute Nucleated RBC 0.00 Nucleated RBC % 0.0 PT 11.6 INR 1.0 APTT 26.8 VBG pH VBG pCO2 VBG pO2 VBG HCO3 VBG Total CO2 VBG O2 Saturation VBG Base Excess Sodium 137 Potassium 4.7 Chloride 105 Carbon Dioxide 21 Anion Gap 11.0 BUN 57 H Creatinine 1.5 H Estimated GFR (MDRD) 34 L Glucose 134 H Calcium 9.3 Total Bilirubin 2.0 H AST 20 ALT 16 Alkaline Phosphatase 72 Troponin I High Sens B-Natriuretic Peptide Total Protein 6.5 L Albumin 3.9 Globulin 2.6 Albumin/Globulin Ratio 1.5 Lipase 23 TSH 01/02/19 01/02/19 01/02/19 18:20 18:20 18:20 WBC RBC Hgb Hct MCV MCH MCHC RDW Plt Count MPV Neut # (Auto) Lymph # (Auto) [place] # (Auto) Eos # (Auto) Baso # (Auto) Absolute Nucleated RBC Nucleated RBC % PT INR APTT VBG pH VBG pCO2 VBG pO2 VBG HCO3 VBG Total CO2 VBG O2 Saturation VBG Base Excess Sodium Potassium Chloride Carbon Dioxide Anion Gap BUN Creatinine Estimated GFR (MDRD) Glucose Calcium Total Bilirubin AST ALT Alkaline Phosphatase Troponin I High Sens 37.1 H* B-Natriuretic Peptide 3198 H Total Protein Albumin Globulin Albumin/Globulin Ratio Lipase TSH 2.26 01/02/19 01/02/19 18:25 19:50 WBC RBC Hgb Hct MCV MCH MCHC RDW Plt Count MPV Neut # (Auto) Lymph # (Auto) [place] # (Auto) Eos # (Auto) Baso # (Auto) Absolute Nucleated RBC Nucleated RBC % PT INR APTT VBG pH 7.332 VBG pCO2 36.3 L VBG pO2 56.7 H VBG HCO3 18.8 L VBG Total CO2 19.9 L VBG O2 Saturation 87.0 H VBG Base Excess -6.4 L Sodium Potassium Chloride Carbon Dioxide Anion Gap BUN Creatinine Estimated GFR (MDRD) Glucose Calcium Total Bilirubin AST ALT Alkaline Phosphatase Troponin I High Sens 45.9 H* B-Natriuretic Peptide Total Protein Albumin Globulin Albumin/Globulin Ratio Lipase TSH - Rads (name of study) 1v chest Radiology: EMP read contemporaneously (Mild pulmonary vascular congestion, small pleural effusions associated with mild bibasilar atelectasis.) PD MEDICAL DECISION MAKING - ED course ED course: 78-year-old woman presents with acute shortness of breath consistent with CHF as well as markedly elevated blood pressures in the 250/150 range. She was started on a nitroglycerin drip for same and also administered Lasix IV and lisinopril orally. She did get some relief with the above interventions. Also needed to rule out for PE given the ongoing cancer treatment and history of same but CT for same was negative. Given the slight rise in her troponin the case was discussed by phone with Dr. Jaquez in [place] who felt that given the overall picture and only slight elevation in troponin could be medically managed here and less she developed dynamic EKG changes or a more significant elevation of troponin. Spoke with Dr. Penny for admission at 9:35 PM. During her ED stay the nitroglycerin was rapidly titrated up with improvement in her blood pressure and significant improvement in her symptoms. - Critical Care Time(min): 42 Time Includes: Direct patient care, Review records, Reassess patient, Document care, Coordinate care, Medical consult, Family consult for tx mar Data interpretation: Labs, Pulse ox, See progress note Procedures excluded from critical care time: EKG Departure - Departure Disposition: 66 [facility] DC/Xfer Clinical Impression: Hypertensive emergency Congestive heart failure Qualifiers: Heart failure type: unspecified Heart failure chronicity: acute Qualified Code(s): I50.9 - Heart failure, unspecified Condition: Serious
[2019-01-02 18:28] LABS: BASOPHILS % (AUTO) 0.2 %; EOSINOPHILS % (AUTO) 0.6 %; HGB - HEMOGLOBIN 11.1 g/dL (12.0-16.0); LYMPHOCYTES % (AUTO) 15.8 %; MEAN CORPUSCULAR HEMOGLOBIN 30.2 pg (27.0-31.0); MEAN CORPUSCULAR HGB CONC 32.5 g/dL (32.0-36.0); MEAN CORPUSCULAR VOLUME 92.9 fL (81.0-99.0); MEAN PLATELET VOLUME 10.7 fL (7.9-10.8); MONOCYTES # (AUTO) 0.4 10^3/uL (0.0-1.0); MONOCYTES % (AUTO) 6.3 %; NEUTROPHILS # (AUTO) 4.9 10^3/uL (1.5-6.6); NEUTROPHILS % (AUTO) 76.9 %; PLT - PLATELET COUNT 86 10^3/uL (130-450); RED BLOOD COUNT 3.68 10^6/uL (4.20-5.40); RED CELL DISTRIBUTION WIDTH 15.4 % (12.0-15.0); WHITE BLOOD COUNT 6.4 x10^3/uL (4.8-10.8)
[2019-01-02 18:33] LABS: VBG BASE EXCESS -6.4 mmol/L (-2 - +2); VBG PCO2 36.3 mmHg (41-51); VBG PH 7.332 (7.31-7.41); VBG PO2 56.7 mmHg (25-47); VBG TOTAL CO2 19.9 mmol/L (24-29)
[2019-01-02 18:43] LABS: PT - PROTHROMBIN TIME 11.6 secs (9.9-12.6)
[2019-01-02 18:44] LABS: ALBUMIN 3.9 g/dL (3.2-5.5); ALBUMIN/GLOBULIN RATIO 1.5 (1.0-2.2); CALCIUM 9.3 mg/dL (8.5-10.3); CREATININE 1.5 mg/dL (0.4-1.0); TOTAL PROTEIN 6.5 g/dL (6.7-8.2)
[2019-01-02 18:50] LABS: PARTIAL THROMBOPLASTIN TIME 26.8 secs (24.9-33.3)
[2019-01-02] MEDS ORDERED: ONDANSETRON 4 MG/2 ML VIAL IVP STA (18:57)
[2019-01-02] MEDS ORDERED: IOVERSOL 320 100 ML VIAL IVP ONE ×2 (19:04→19:48)
--- NOTE | 2019-01-02 19:16 | XRAY Report ---
Reason: dyspnea Procedure Date: 01/02/2019 Accession Number: [id number] / [id number] Procedure: XR - Chest 1 View X-Ray CPT Code: 36641 FULL RESULT: EXAM: CHEST RADIOGRAPHY EXAM DATE: 01/02/2019 06:40 PM. CLINICAL HISTORY: Dyspnea. COMPARISON: CHEST W10/26/2018 11:01 AM. TECHNIQUE: 1 view. FINDINGS: Lines and tubes: Right chest wall infusion port with its tip projecting at the lower superior vena cava. Lungs/Pleura: Heart size within normal limits. Mild pulmonary vascular congestion. Small bilateral pleural effusions associated with mild bibasilar atelectasis. Mediastinum: Heart size within normal limits. No pulmonary vascular congestion. Osseous structures: No significant focal osseous lesions. IMPRESSION: 1. Mild pulmonary vascular congestion. 2. Small pleural effusions associated with mild bibasilar atelectasis. RADIA
[2019-01-02] MEDS ORDERED: LISINOPRIL 5 MG TABLET PO STA (19:38)
[2019-01-02] MEDS ORDERED: FUROSEMIDE 40 MG/4 ML VIAL IVP STA (19:38)
[2019-01-02] MEDS ORDERED: ASPIRIN CHEW 81 MG TABLET PO STA (20:34)
--- NOTE | 2019-01-02 20:47 | CT Report ---
Reason: PE protocol dyspnea Procedure Date: 01/02/2019 Accession Number: [id number] / [id number] Procedure: CT - ANGIO CHEST W/WO CPT Code: FULL RESULT: EXAM: CT ANGIOGRAM CHEST EXAM DATE: 01/02/2019 07:42 PM. CLINICAL HISTORY: Dyspnea, clinical concern for a pulmonary embolism. COMPARISON: CHEST ANGIO 01/02/2019 7:23 PM. CHEST W/ 03/04/2017 9:52 AM. TECHNIQUE: Routine helical imaging was performed through the chest in the pulmonary arterial phase. IV Contrast: OPTI 320l 50 mL. Reconstructions: Coronal 3-D MIP reconstructions.Sagittal and coronal. In accordance with CT protocol optimization, one or more of the following dose reduction techniques were utilized for this exam: automated exposure control, adjustment of mA and/or KV based on patient size, or use of iterative reconstructive technique. FINDINGS: Pulmonary Arteries: Diagnostic quality: Adequate through the segmental arteries. No evidence for acute or chronic pulmonary emboli. RV/LV is within normal limits. There is no interventricular septal bowing. There is no reflux of contrast material in the IVC. Lungs/Pleura: There are small bilateral pleural effusions. No pneumothorax. No suspicious lung nodules or confluent airspace consolidation. Mediastinum: Normal. No cardiac enlargement or adenopathy. Thoracic Aorta: Unremarkable. Upper Abdomen: There is a 5.7 cm splenic cyst, unchanged. Splenic capsular calcifications also seen, likely postinflammatory or due to a remote injury. Other: None. IMPRESSION: 1. No pulmonary embolism. 2. Small bilateral pleural effusions. RADIA
[2019-01-02] MEDS ORDERED: ACETAMINOPHEN 325 MG TABLET PO PRN (21:37)
[2019-01-02] MEDS ORDERED: ALBUTEROL NEB 2.5 MG/3 ML INH PRN (21:37)
--- NOTE | 2019-01-02 23:01 | HISTORY & PHYSICAL EXAMINATION ---
Chief Complaint - Chief Complaint Chief Complaint: Shortness of breath History of Present Illness - Admitted From Admitted From:: Home - History Obtained From Records Reviewed: Yes History obtained from: Patient, Family, ER Physician, EMR - History of Present Illness HPI Comment/Other: This is a very pleasant 78 year old female with a past medical history significant for metastatic ovarian cancer, CKD, and resistant hypertension who presents from home complaining of worsening shortness of breath. She states her symptoms began about a week ago but she was able to ambulate without difficulty. Over the last couple of days she became more dyspneic and today she seeked medical attention. She reports worsening lower extremity edema but denies orth opnea. She has had pleuritic chest pain that is present when she coughs. She notes an occasional nonproductive cough. Today she was nauseous and reports an episode of emesis. She tells me that she received two units of PRBC's yesterday for her anemia. She does not believe that this made her dyspnea more significant. This was the first time she had received a transfusion. She denies fevers, chills, dysuria, urgency, dizziness, and lightheadedness. She also noticed today that her blood pressure was significantly elevated at >200 systolic. She reports her blood pressure has been difficult to control and that she is on multiple antihypertensives which she did take today. She reports no prior history of heart failure. She reports a prior history of PE for which she took Lovenox. This was in 2014 and she is no longer taking Lovenox. She does take Xarelto as needed for when she goes on long trips. The last time she took a dose was over one year ago. She is currently receiving carbo/Taxol on a weekly basis and the last treatment was this past friday. In the ER, she was found to be hypertensive on arrival with a blood pressure of 241/146, tachycardic in the 110's, and hypoxic with an oxygen saturation of 88% on room air which improved to mid 90's with 2L nasal cannula. Labs were signifi cant for a creatinine of 1.5 which appears to be her most recent baseline. Her troponin was elevated at 37.1. BNP was also elevated at 3198 with no prior lab value available. Chest x-ray was concerning for pulmonary vascular congestion. She had a CTA of the chest completed which showed no pulmonary embolism and no consolidation but did show small bilateral pleural effusions. She was started on a Nitroglycerin infusion and given a dose of Lasix IV with improvement in her symptoms. She will be admitted for further management. Of note, I did speak with the patient regarding goals of care. She is schedule to meet with Palliative Care for an initial consult but has not done so yet. The patient states that she wants to be a full code at this time as she would like to have at least one more chance. 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 They both from complications of the ir heart disease. She had three aunts with cancer. She believes that one of them may have had colon cancer but she cannot recall. Reports no other family history. Living arrangement: At home Living Situation: With spouse/s.o. Social History Notes: She has lived on [facility] for approximately 20 years. She previously lived in [facility] but is originally from [place]. 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 She does not smoke. Does drink alcohol on occasion. - Substance History Use: Uses substance without health or social issues: NONE - POLST Patient has POLST: No Meds/Allgy - Home Medications Home Medications: Ambulatory Orders Medication Instructions Recorded Confirmed Aspirin 81 mg PO DAILY PM 02/25/14 12/29/18 Cholecalciferol (Vitamin D3) 800 unit PO DAILY 04/17/16 12/29/18 [Vitamin D] Rivaroxaban [Xarelto] 20 mg PO ONCE PRN 01/13/17 12/29/18 Atenolol 75 mg PO DAILY 06/23/17 12/29/18 Polyethylene Glycol 3350 [Miralax] 17 gm PO DAILY 10/20/17 12/29/18 Sennosides [Senna] 1 tab PO DAILY PRN 10/20/17 12/29/18 Multivitamin [Multivitamins] 1 tab ORAL DAILY 02/23/18 12/29/18 Lisinopril 40 mg PO DAILY 07/22/18 12/29/18 Atorvastatin Calcium 20 mg PO DAILY 08/10/18 12/29/18 Furosemide 40 mg PO DAILY 08/10/18 12/29/18 hydrALAZINE [Apresoline] 20 mg PO BID 10/05/18 12/29/18 Spironolactone 100 mg PO BID 11/30/18 12/29/18 - Allergies Allergies/Adverse Reactions: Allergies Allergy/AdvReac Type Severity Reaction Status Date / Time Sulfa (Sulfonamide Allergy Mild Rash Verified 12/29/18 09:30 Antibiotics) risedronate sodium AdvReac Cramps Verified 12/29/18 09:30 [From Actonel] Review of Systems - Constitutional Constitutional: denies: Fatigue, Fever, Chills, Weakness, Poor appetite - Eyes Eyes: denies: Blurred vision - Cardiovascular Cariovascular: reports: Chest pain (with cough), Edema, Exertional dyspnea, Decr. exercise tolerance. denies: Palpitations, Lightheadedness - Respiratory Respiratory: reports: Cough, SOB at rest, SOB with exertion. denies: Sputum pro duction, Orthopnea - Gastrointestinal Gastrointestinal: reports: Constipation, Nausea, Vomiting. denies: Abdominal pain, Diarrhea - Genitourinary Genitourinary: denies: Dysuria, Frequency, Urgency - Integumentary Integumentary: denies: Rash - Neurological Neurological: reports: Numbness. denies: General weakness, Focal weakness, Headache, Dizziness - All Other Systems All Other Systems: reports: Reviewed and negative Prior Level of Functionality: Independent with ADL's. Exam - Vital Signs Reviewed Vital Signs: Yes Vital Signs: Vital Signs x48h Temp Pulse Resp BP Pulse Ox 01/02/19 22:00 71 18 181/89 H 96 01/02/19 21:30 73 20 204/114 H 96 01/02/19 21:00 37.0 C 01/02/19 20:59 88 19 211/124 H 94 01/02/19 20:30 90 20 226/131 H 96 01/02/19 20:14 37.0 C 01/02/19 20:10 90 26 H 190/135 H 96 01/02/19 20:00 99 20 213/119 H 96 01/02/19 19:35 118 H 24 203/160 H 94 01/02/19 19:09 94 18 209/136 H 95 01/02/19 18:39 99 24 217/115 H 96 01/02/19 18:21 89 24 218/110 H 94 01/02/19 18:03 36.2 C L 114 H 28 H 241/146 H 88 L - Physical Exam General Appearance: positive: No acute distress, Alert Eyes Bilateral: positive: EOMI, No scleral icterus, Other (Subconjuctival hemorrhage of the right eye) ENT: positive: ENT inspection nml Neck: positive: Nml inspection Respiratory: positive: Chest non-tender, No respiratory distress, Rales, Other (Diminished breath sounds in the bases). negative: Breath sounds nml, Wheezes, Rhonchi Cardiovascular: positive: Regular rate & rhythm, No murmur. negative: Tachycardia, Bradycardia, Systolic murmur, Diastolic murmur Abdomen: positive: Non-tender, Nml bowel sounds, No distention. negative: Tenderness, Guarding, Rebound Skin: positive: Color nml, No rash, Warm, Dry Extremities: positive: Pedal edema (+2 pitting edema in bilateral lower extremities up to the knee) Neurologic/Psychiatric: positive: Oriented x3, Other (No focal motor deficits). negative: Disoriented to person, Disoriented to place, Disoriented to time, Weakness Conclusion/Plan - Problem List (1) Hypertensive emergency Conclusion/Plan: Has history of resistant hypertension requiring multiple antihypertensives. Presented with a blood pressure of 240's/140's and suspected heart failure along with elevated troponin. Improved to 180's systolic with Nitroglycerin gtt. Had outpatient renal doppler that was not suggestive of renal artery stenosis. - Continue Nitroglycerin gtt for a goal systolic of 180 which will be approximately a 25% reduction - Resume Lisnopril in AM - Switch Atenolol to Carvedilol 12.5mg with first dose tonight - Resume Hydralazine in AM - Monitor on telemetry (2) Acute heart failure Conclusion/Plan: Suspect that her presentation is secondary to heart failure although her last Echo from January of 2018 revealed preserved EF without significant valvular disease. She is hypoxic requiring 2L of oxygen, has significant lower extremity edema, and her BNP is >3000. X-ray does suggest pulmonary vascular congestion and she does have small bilateral pleural effusions. This was likely exacerbated by her hypertension. EKG revealed sinus tachycardia without ischemic changes. Troponin is only mildly elevated and is likely demand ischemia. - Lasix IV for diuresis - Resume home antihypertensives - Check Echo - Monitor on telemetry - Trend troponin (3) CKD (chronic kidney disease) Conclusion/Plan: She has had worsening renal function since October. Has evidence of proteinuria but no RBC's. This may be secondary to her difficult to control hypertension. Creatinine has been stable at 1.5. On Lisinopril. Prior renal U/S did not reveal obstruction or hydronephrosis. Scheduled to see Dr. Manzanares this . - Will diurese with IV Lasix given her hypoxia and pulmonary vascular congestion - Continue Lisinopril as she does not have acute kidney injury - Monitor renal function (4) Ovarian cancer Conclusion/Plan: She has history of metastatic ovarian cancer with mets to the left breast and spleen. Has received multiple different chemotherapy agents in the past. Currently receiving weekly Carbo/Taxol with last treatment occurring this past Friday. Follows with Dr. Willingham in the [facility] clinic. She was scheduled to meet with Palliative care. - Will consult Palliative Care to see the patient while she is hospitalized Qualifiers: Laterality: right Qualified Code(s): C56.1 - Malignant neoplasm of right ovary; C56.0 - Malignant neoplasm of right ovary (5) Anemia associated with chemotherapy Conclusion/Plan: Appears to be secondary to chemotherapy, B12 deficiency, and chronic illness. Receives monthly B12 injections. Received 2U PRBC yesterday. Hemoglobin previously in the 7's but now in low 11's. No signs of bleeding. - Monitor CBC (6) Thrombocytopenia Conclusion/Plan: Likely secondary to chemotherapy and bone marrow suppression. Platelets have been declining over last few months. Stable in the 80's with no signs of bleeding. - Monitor CBC - No indication for transfusion at this time - Monitor for signs of bleeding (7) HARI on CPAP Conclusion/Plan: Stable on CPAP. - Continue home CPAP - Lab Results Fish Bones: 01/02/19 18:20 01/02/19 18:20 - Diagnostic Imaging Results Diagnostic Imaging Results: positive: Final report reviewed, Read independently - EKG Results EKG Interpreted Independently: Yes EKG Findings: Sinus tachycardia with out ischemic changes. Core Measures - Anticipated LOS I expect patient to be DC'd or transferred within 96 hours.: Yes - Issues Hospital Issues and Management Plan: Hypertensive emergency and acute on chronic heart failure requiring IV antihypertensives and IV diuresis. - DVT/VTE - Prophylaxis VTE/DVT Device ordered at admit?: Yes VTE/DVT Prophylaxis med ordered at admit?: Yes
[2019-01-02] MEDS: CARVEDILOL 12.5 MG TABLET PO SCH (23:56)
[2019-01-03] MEDS: SODIUM CHLORIDE FLUSH 0.9% 10 ML SYRINGE IVP PRN ×6 (00:04→09:05)
[2019-01-03] MEDS: SODIUM CHLORIDE FLUSH 0.9% 10 ML SYRINGE IVP SCH ×3 (00:04→16:07)
[2019-01-03] MEDS: ONDANSETRON 4 MG/2 ML VIAL IVP PRN ×2 (00:42→06:41)
[2019-01-03] MEDS: PROCHLORPERAZINE 10 MG/2 ML VIAL IVP PRN ×3 (02:39→16:06)
[2019-01-03] MEDS ORDERED: NITROGLYCERIN 50 MG/250 ML 50 MG/250 ML BOTTLE IV SCH (04:00)
[2019-01-03 06:02] LABS: BASOPHILS % (AUTO) 0.2 %; HGB - HEMOGLOBIN 9.1 g/dL (12.0-16.0); LYMPHOCYTES # (AUTO) 0.5 10^3/uL (1.5-3.5); LYMPHOCYTES % (AUTO) 8.6 %; MEAN CORPUSCULAR HEMOGLOBIN 29.4 pg (27.0-31.0); MEAN CORPUSCULAR HGB CONC 31.8 g/dL (32.0-36.0); MEAN CORPUSCULAR VOLUME 92.3 fL (81.0-99.0); MEAN PLATELET VOLUME 11.8 fL (7.9-10.8); MONOCYTES # (AUTO) 0.3 10^3/uL (0.0-1.0); NEUTROPHILS % (AUTO) 85.7 %; PLT - PLATELET COUNT 70 10^3/uL (130-450); RED CELL DISTRIBUTION WIDTH 15.4 % (12.0-15.0); WHITE BLOOD COUNT 5.8 x10^3/uL (4.8-10.8)
[2019-01-03 06:09] LABS: ALBUMIN 3.3 g/dL (3.2-5.5); ALBUMIN/GLOBULIN RATIO 1.6 (1.0-2.2); BILIRUBIN,TOTAL 1.8 mg/dL (0.2-1.0); CALCIUM 8.9 mg/dL (8.5-10.3); CREATININE 1.6 mg/dL (0.4-1.0); MAGNESIUM 2.7 mg/dL (1.7-2.8); PHOSPHORUS 4.7 mg/dL (2.5-4.6); TOTAL PROTEIN 5.4 g/dL (6.7-8.2)
[2019-01-03] MEDS: CARVEDILOL 12.5 MG TABLET PO SCH ×2 (08:31→20:23)
[2019-01-03] MEDS: SENNA 8.6 MG TABLET PO SCH (08:31)
[2019-01-03] MEDS: DOCUSATE SODIUM 250 MG CAPSULE PO SCH (08:31)
[2019-01-03] MEDS: ENOXAPARIN 40 MG/0.4 ML SYRINGE SUBQ SCH (08:38)
[2019-01-03] MEDS ORDERED: LISINOPRIL 20 MG TABLET PO SCH (09:00)
[2019-01-03] MEDS ORDERED: FUROSEMIDE 100 MG/10 ML VIAL IVP SCH (09:00)
--- NOTE | 2019-01-03 11:42 | PROVIDER PROGRESS NOTE ---
Assessment/Plan - Problem List (1) Hypertensive emergency Assessment/Plan: She has a moderate renal artery stenosis on one side, per the admission H&P, and has difficult to control BP. BP at admission was 240/140, and she needed iv NTG drip in the ICU, plus her other meds for BP control overnight. Today BP has improved to 140-150/80-90. Will wean the iv NTG to off over several hours and resume her home Clonidine and Hydralazine. Continue iv Lasix due to the severe BNP elevation). (2) Renal artery stenosis Assessment/Plan: Will continue her daily ASA, watching for bleeding with the low plt count. Continue her statin. (3) Flash pulmonary edema Assessment/Plan: The CXR read mild pulmonary vascular congestion but she needed supplemental oxygen and the BNP was high at 300's and yuridia even further this a.m. to the 5000's. Continue iv Lasix. Follow I's and O's and daily weights. Diet should be low salt. Echo was ordered and will be done tomorrow (today is Sun) (4) Elevated troponin Assessment/Plan: She had nearly a quadrupling of initial hs-troponin, consistent with NSTEMI, then the troponin plateaued, suggesting it is up from CHF. Will check EKG today for changes from yesterday. Echo is pending, to evaluate LV wall motion. Continue her home doses of ASA and statin. (5) CKD (chronic kidney disease) Assessment/Plan: Her baseline creat is 1.5 and in the ER creat was 1.5, but today it has risen to 1.6. Continue her BP meds and ASA and statin for renal artery stenosis. Will stop the Lisinopril but continue her other BP meds and maximize their doses. Atenolol was changed to Coreg by the admitting Guyline Operator. (6) Anemia associated with chemotherapy Assessment/Plan: She had received a transfusion 3 days ago, which may have added to the volume load, causing the pulmonary edema. Hgb stable here. Follow CBC daily. (7) Thrombocytopenia Assessment/Plan: Drop in plts after chemo 5 days ago. Monitor CBC daily. Hold Lovenox if plts < 100. Hold Aspirin if plts <50. (8) Chemotherapy-induced nausea Assessment/Plan: Antiemetics are helping, she is not vomiting up her pills. (9) HARI on CPAP Assessment/Plan: Order for home device was written. (10) Ovarian cancer Assessment/Plan: She has been battling this for 4 years and just 1 mo ago the chemo was changed from monthly to weekly. - Current Meds Current Meds: Current Medications Generic Name Dose Route Start Last Admin Trade Name Freq PRN Reason Stop Dose Admin Carvedilol 12.5 mg 01/02/19 23:00 01/03/19 08:31 Coreg PO 12.5 mg BID RAMON Administration Docusate Sodium 250 - 500 mg 01/03/19 09:00 01/03/19 08:31 Colace 250mg Capsule PO 250 mg DAILY RAMON Administration Enoxaparin Sodium 40 mg 01/03/19 09:00 01/03/19 08:38 Lovenox SUBQ Not Given DAILY RAMON Furosemide 60 mg 01/03/19 09:00 01/03/19 09:04 Lasix Inj 100mg Vial IVP 60 mg DAILY RAMON Administration Nitroglycerin 50 mg in 250 mls @ 1.5 mls/hr 01/03/19 04:00 01/03/19 11:03 Nitroglycerin IV 01/03/19 16:00 20 mcg/min .Q72H RAMON 6 mls/hr Titration Protocol 5 MCG/MIN Lisinopril 40 mg 01/03/19 09:00 01/03/19 08:31 Zestril PO 40 mg DAILY RAMON Administration Ondansetron HCl 4 mg 01/02/19 21:37 01/03/19 06:41 Zofran Inj IVP 4 mg Q6HR PRN Administration Nausea / Vomiting Prochlorperazine Edisylate 10 mg 01/03/19 01:53 01/03/19 09:22 Compazine Inj IVP 10 mg Q4HR PRN Administration Nausea / Vomiting Senna 8.6 - 17.2 mg 01/03/19 09:00 01/03/19 08:31 Senokot PO 8.6 mg DAILY RAMON Administration Sodium Chloride 10 ml 01/03/19 01:00 01/03/19 09:05 Normal Saline Flush 0.9% IVP 30 ml 0100,0900,1700 RAMON Administration Sodium Chloride 10 ml 01/02/19 21:37 01/03/19 09:05 Normal Saline Flush 0.9% IVP 10 ml PRN PRN Administration NEEDED PER PROVIDER ORDERS - Lab Result Fish Bone Diagrams: 01/03/19 05:05 01/03/19 05:05 - EKG Results EKG Interpreted Independently: Yes EKG Comparison: Unchanged from prior EKG EKG Findings: NSR, LVH, no ischemic changes. - Additional Planning My Orders: My Active Orders 01/03/19 10:26 Miscellaenous Nursing Order [RC] ONCE Subjective - Subjective Patient Reports: Feeling Better, Nausea Nursing Reports: Other (Nauseated, antiemetic makes her sleepy.) Objective Vital Signs: Vital Signs - 24 hr 01/02/19 01/02/19 01/02/19 18:03 18:21 18:39 Temperature 36.2 C L Heart Rate 114 H 89 99 Heart Rate [ Monitoring electrodes] Respiratory 28 H 24 24 Rate Blood Pressure 241/146 H 218/110 H 217/115 H Blood Pressure [Left Brachial artery] O2 Saturation 88 L 94 96 01/02/19 01/02/19 01/02/19 19:09 19:35 20:00 Temperature Heart Rate 94 118 H 99 Heart Rate [ Monitoring electrodes] Respiratory 18 24 20 Rate Blood Pressure 209/136 H 203/160 H 213/119 H Blood Pressure [Left Brachial artery] O2 Saturation 95 94 96 01/02/19 01/02/19 01/02/19 20:10 20:14 20:30 Temperature 37.0 C Heart Rate 90 90 Heart Rate [ Monitoring electrodes] Respiratory 26 H 20 Rate Blood Pressure 190/135 H 226/131 H Blood Pressure [Left Brachial artery] O2 Saturation 96 96 01/02/19 01/02/19 01/02/19 20:59 21:00 21:30 Temperature 37.0 C Heart Rate 88 73 Heart Rate [ Monitoring electrodes] Respiratory 19 20 Rate Blood Pressure 211/124 H 204/114 H Blood Pressure [Left Brachial artery] O2 Saturation 94 96 01/02/19 01/02/19 01/02/19 22:00 23:03 23:15 Temperature 37.2 C Heart Rate 71 Heart Rate [ 71 77 Monitoring electrodes] Respiratory 18 21 20 Rate Blood Pressure 181/89 H Blood Pressure 192/104 H 185/96 H [Left Brachial artery] O2 Saturation 96 97 96 01/02/19 01/02/19 01/03/19 23:30 23:45 00:00 Temperature 37 C Heart Rate Heart Rate [ 77 70 74 Monitoring electrodes] Respiratory 19 17 19 Rate Blood Pressure Blood Pressure 183/100 H 184/90 H 182/95 H [Left Brachial artery] O2 Saturation 98 97 97 01/03/19 01/03/19 01/03/19 00:30 01:00 02:00 Temperature 37 C Heart Rate Heart Rate [ 65 73 65 Monitoring electrodes] Respiratory 13 16 16 Rate Blood Pressure Blood Pressure 152/84 H 187/95 H 140/80 H [Left Brachial artery] O2 Saturation 96 97 95 01/03/19 01/03/19 01/03/19 03:00 04:00 04:07 Temperature Heart Rate Heart Rate [ 66 64 68 Monitoring electrodes] Respiratory 14 12 12 Rate Blood Pressure Blood Pressure 162/83 H 146/81 H 156/78 H [Left Brachial artery] O2 Saturation 96 97 97 01/03/19 01/03/19 01/03/19 04:15 04:20 04:30 Temperature Heart Rate Heart Rate [ 69 67 66 Monitoring electrodes] Respiratory 12 17 14 Rate Blood Pressure Blood Pressure 147/81 H 152/83 H 139/73 H [Left Brachial artery] O2 Saturation 97 98 97 01/03/19 01/03/19 01/03/19 04:45 05:00 05:05 Temperature 36.8 C Heart Rate Heart Rate [ 62 68 62 Monitoring electrodes] Respiratory 13 15 14 Rate Blood Pressure Blood Pressure 143/73 H 159/96 H 161/80 H [Left Brachial artery] O2 Saturation 97 98 98 01/03/19 01/03/19 01/03/19 05:15 05:20 05:25 Temperature Heart Rate Heart Rate [ 65 64 62 Monitoring electrodes] Respiratory 15 13 23 Rate Blood Pressure Blood Pressure 163/85 H 165/90 H 165/82 H [Left Brachial artery] O2 Saturation 98 98 98 01/03/19 01/03/19 01/03/19 05:30 05:35 05:40 Temperature Heart Rate Heart Rate [ 63 63 63 Monitoring electrodes] Respiratory 16 17 12 Rate Blood Pressure Blood Pressure 164/79 H 171/81 H 167/82 H [Left Brachial artery] O2 Saturation 97 98 98 01/03/19 01/03/19 01/03/19 05:43 05:45 05:50 Temperature Heart Rate 66 Heart Rate [ 67 63 Monitoring electrodes] Respiratory 14 15 15 Rate Blood Pressure Blood Pressure 168/93 H 148/76 H [Left Brachial artery] O2 Saturation 97 98 98 01/03/19 01/03/19 01/03/19 06:00 06:05 06:10 Temperature 36.8 C Heart Rate Heart Rate [ 65 62 62 Monitoring electrodes] Respiratory 12 19 19 Rate Blood Pressure Blood Pressure 164/86 H 146/76 H 150/78 H [Left Brachial artery] O2 Saturation 98 98 98 01/03/19 01/03/19 01/03/19 06:15 06:20 06:25 Temperature Heart Rate Heart Rate [ 63 64 81 Monitoring electrodes] Respiratory 15 14 23 Rate Blood Pressure Blood Pressure 155/79 H 152/81 H 160/26 H [Left Brachial artery] O2 Saturation 98 98 99 01/03/19 01/03/19 01/03/19 06:30 06:40 07:03 Temperature 36.3 C L Heart Rate Heart Rate [ 80 82 72 Monitoring electrodes] Respiratory 17 18 17 Rate Blood Pressure Blood Pressure 171/93 H 181/87 H 199/102 H [Left Brachial artery] O2 Saturation 98 99 98 01/03/19 01/03/19 01/03/19 08:00 09:00 09:33 Temperature 37.0 C Heart Rate Heart Rate [ 87 86 64 Monitoring electrodes] Respiratory 23 22 14 Rate Blood Pressure Blood Pressure 181/86 H 165/88 H 146/82 H [Left Brachial artery] O2 Saturation 98 98 01/03/19 01/03/19 10:00 11:00 Temperature Heart Rate Heart Rate [ 60 65 Monitoring electrodes] Respiratory 12 17 Rate Blood Pressure Blood Pressure 153/77 H 158/72 H [Left Brachial artery] O2 Saturation 95 Oxygen O2 Source Room air Oxygen Flow Rate 2 I&O (Last 24 Hrs): Intake and Output Totals x24h 01/01/19 01/02/19 01/03/19 23:59 23:59 23:59 Intake Total 50.6 460.125 Output Total 300 975 Balance -249.4 -514.875 General: Alert, Oriented x3 HEENT: Mucous membr. moist/pink Neck: Supple, No JVD Neuro: Non Focal Cardiovascular: Regular rate, No murmurs Respiratory: No respiratory distress, Breath sounds nml Abdomen: Normal bowel sounds, Soft Extremities: No edema - Results Results: Laboratory Results WBC 5.8 x10^3/uL (4.8-10.8) 01/03/19 05:05 RBC 3.10 10^6/uL (4.20-5.40) L 01/03/19 05:05 Hgb 9.1 g/dL (12.0-16.0) L 01/03/19 05:05 Hct 28.6 % (37.0-47.0) L 01/03/19 05:05 MCV 92.3 fL (81.0-99.0) 01/03/19 05:05 MCH 29.4 pg (27.0-31.0) 01/03/19 05:05 MCHC 31.8 g/dL (32.0-36.0) L 01/03/19 05:05 RDW 15.4 % (12.0-15.0) H 01/03/19 05:05 Plt Count 70 10^3/uL (130-450) L 01/03/19 05:05 MPV 11.8 fL (7.9-10.8) H 01/03/19 05:05 Neut # (Auto) 5.0 10^3/uL (1.5-6.6) 01/03/19 05:05 Lymph # (Auto) 0.5 10^3/uL (1.5-3.5) L 01/03/19 05:05 [place] # (Auto) 0.3 10^3/uL (0.0-1.0) 01/03/19 05:05 Eos # (Auto) 0.0 10^3/uL (0.0-0.7) 01/03/19 05:05 Baso # (Auto) 0.0 10^3/uL (0.0-0.1) 01/03/19 05:05 Absolute Nucleated RBC 0.00 x10^3/uL 01/03/19 05:05 Nucleated RBC % 0.0 /100WBC 01/03/19 05:05 PT 11.6 secs (9.9-12.6) 01/02/19 18:20 INR 1.0 (0.8-1.2) 01/02/19 18:20 APTT 26.8 secs (24.9-33.3) 01/02/19 18:20 VBG pH 7.332 (7.31-7.41) 01/02/19 18:25 VBG pCO2 36.3 mmHg (41-51) L 01/02/19 18:25 VBG pO2 56.7 mmHg (25-47) H 01/02/19 18:25 VBG HCO3 18.8 mmol/L (23-28) L 01/02/19 18:25 VBG Total CO2 19.9 mmol/L (24-29) L 01/02/19 18:25 VBG O2 Saturation 87.0 % (60-80) H 01/02/19 18:25 VBG Base Excess -6.4 mmol/L (-2 - +2) L 01/02/19 18:25 Sodium 138 mmol/L (135-145) 01/03/19 05:05 Potassium 4.7 mmol/L (3.5-5.0) 01/03/19 05:05 Chloride 104 mmol/L (101-111) 01/03/19 05:05 Carbon Dioxide 24 mmol/L (21-32) 01/03/19 05:05 Anion Gap 10.0 (6-13) 01/03/19 05:05 BUN 63 mg/dL (6-20) H 01/03/19 05:05 Creatinine 1.6 mg/dL (0.4-1.0) H 01/03/19 05:05 Estimated GFR (MDRD) 31 (>89) L 01/03/19 05:05 Glucose 143 mg/dL (70-100) H 01/03/19 05:05 POC Whole Bld Glucose 118 mg/dL (70 - 100) H 01/03/19 06:46 Calcium 8.9 mg/dL (8.5-10.3) 01/03/19 05:05 Phosphorus 4.7 mg/dL (2.5-4.6) H 01/03/19 05:05 Magnesium 2.7 mg/dL (1.7-2.8) 01/03/19 05:05 Total Bilirubin 1.8 mg/dL (0.2-1.0) H 01/03/19 05:05 AST 18 IU/L (10-42) 01/03/19 05:05 ALT 14 IU/L (10-60) 01/03/19 05:05 Alkaline Phosphatase 60 IU/L (42-121) 01/03/19 05:05 Troponin I High Sens 127.7 pg/mL (2.3-14.8) H* 01/03/19 09:03 B-Natriuretic Peptide 5450.00 pg/mL (5-100) H 01/03/19 05:05 Total Protein 5.4 g/dL (6.7-8.2) L 01/03/19 05:05 Albumin 3.3 g/dL (3.2-5.5) 01/03/19 05:05 Globulin 2.0 g/dL (2.1-4.2) L 01/03/19 05:05 Albumin/Globulin Ratio 1.6 (1.0-2.2) 01/03/19 05:05 Lipase 23 U/L (22-51) 01/02/19 18:20 TSH 2.26 uIU/mL (0.34-5.60) 01/02/19 18:20 Nasal Screen MRSA (PCR) NEGATIVE (NEGATIVE) 01/02/19 22:55 - Procedures Procedures: Procedures REPLACEMENT OF LEFT LENS WITH SYNTH SUB, PERC APPROACH (04/03/16) REPLACEMENT OF RIGHT LENS WITH SYNTH SUB, PERC APPROACH (04/17/16)
[2019-01-03] MEDS: ASPIRIN EC 81 MG TABLET PO SCH (12:21)
[2019-01-03] MEDS: CHOLECALCIFEROL 1,000 UNIT TABLET PO SCH (12:21)
[2019-01-03] MEDS: hydrALAZINE 25 MG TABLET PO SCH ×3 (12:58→18:06)
[2019-01-03] MEDS ORDERED: ATORVASTATIN 40 MG TABLET PO SCH (21:00)
[2019-01-03] MEDS ORDERED: SPIRONOLACTONE 25 MG TABLET PO SCH (21:00)
[2019-01-04] MEDS: hydrALAZINE 25 MG TABLET PO SCH ×3 (00:10→13:03)
[2019-01-04] MEDS: SODIUM CHLORIDE FLUSH 0.9% 10 ML SYRINGE IVP SCH (01:24)
[2019-01-04 05:40] LABS: EOSINOPHILS # (AUTO) 0.1 10^3/uL (0.0-0.7); EOSINOPHILS % (AUTO) 2.1 %; HGB - HEMOGLOBIN 8.9 g/dL (12.0-16.0); LYMPHOCYTES # (AUTO) 0.9 10^3/uL (1.5-3.5); LYMPHOCYTES % (AUTO) 19.9 %; MEAN CORPUSCULAR HGB CONC 32.5 g/dL (32.0-36.0); MEAN CORPUSCULAR VOLUME 92.3 fL (81.0-99.0); MEAN PLATELET VOLUME 10.2 fL (7.9-10.8); MONOCYTES # (AUTO) 0.4 10^3/uL (0.0-1.0); MONOCYTES % (AUTO) 7.8 %; NEUTROPHILS # (AUTO) 3.3 10^3/uL (1.5-6.6); NEUTROPHILS % (AUTO) 69.8 %; PLT - PLATELET COUNT 61 10^3/uL (130-450); RED BLOOD COUNT 2.97 10^6/uL (4.20-5.40); RED CELL DISTRIBUTION WIDTH 15.7 % (12.0-15.0); WHITE BLOOD COUNT 4.7 x10^3/uL (4.8-10.8)
[2019-01-04 05:51] LABS: ALBUMIN/GLOBULIN RATIO 1.4 (1.0-2.2); BILIRUBIN,TOTAL 1.3 mg/dL (0.2-1.0); CALCIUM 8.8 mg/dL (8.5-10.3); CREATININE 2.1 mg/dL (0.4-1.0); MAGNESIUM 2.7 mg/dL (1.7-2.8); PHOSPHORUS 3.5 mg/dL (2.5-4.6); TOTAL PROTEIN 5.1 g/dL (6.7-8.2)
[2019-01-04] MEDS ORDERED: MULTIVITAMIN TABLET PO SCH (08:00)
[2019-01-04] MEDS: ASPIRIN EC 81 MG TABLET PO SCH (08:45)
[2019-01-04] MEDS: CARVEDILOL 12.5 MG TABLET PO SCH (08:46)
[2019-01-04] MEDS: CHOLECALCIFEROL 1,000 UNIT TABLET PO SCH (08:46)
[2019-01-04] MEDS: SENNA 8.6 MG TABLET PO SCH (08:46)
[2019-01-04] MEDS: ENOXAPARIN 40 MG/0.4 ML SYRINGE SUBQ SCH (08:46)
[2019-01-04] MEDS: DOCUSATE SODIUM 250 MG CAPSULE PO SCH (08:46)
[2019-01-04] MEDS ORDERED: cloNIDine 0.1 MG TABLET PO SCH (09:00)
--- NOTE | 2019-01-04 11:26 | Discharge Plan ---
Discharge Plan Problem Reviewed?: Yes Disposition: Home, Self Care Condition: Stable Prescriptions: Carvedilol [Coreg] 12.5 mg PO BID #60 tablet Diet: Soft Activity Restrictions: Activity as Tolerated Shower Restrictions: No Driving Restrictions: No Instruction Topics: Kidney Disease Eat Less Sodium, ED Diet Low Salt 2Gm Health Concerns: Admitted with severely elevated Blood Pressure that caused fluid retention and shortness of breath. The recent outpatient blood transfusion and your underlying kidney disease added to this problem. Plan of Treatment: Resume all your pre-hospital medications for treating hypertension EXCEPT STOP the Lisinopril temporarily, until your Personal Assistant OKs to resume it AND STOP the Atenolol. Coreg was electronically ordered to your [facility] in [facility], to replace the Atenolol. Eat less salt in your diet. Eat an easily digestible diet if you are nauseated and if nausea persists, call your PCP or your Cancer specialist for further advice. Keep the upcoming appointments with your specialists. Care Goals: Improved BP and less nausea and managing the cancer, are your goals. Assessment: The patient is agreeable with the plan. No Smoking: If you smoke, Please STOP! Call for help. Follow-up with: Catalina Keita DO [Primary Care Provider] -
--- NOTE | 2019-01-04 11:38 | CONSULTATION NOTE ---
Palliative Care Consultation - Referral Referring Provider: Nargis Waddell MD Time of Visit: [phone] Referral setting: Hospitalized patient Referral Reason: Met Ovarian Cancer/Goals of Care - Information Sources Records reviewed: Previous records reviewed History/Review of Systems obtained from: Patient, Family (daughter Jess present for visit) Exam limitations: No limitations - History of Present Illness Brief History of Present Illness: This is a rodo 78-year-old woman originally from [place], who is hospitalized acutely would be [facility] for increasing shortness of breath. She was found to have a hypertensive emergency and acute on chronic heart failure, 24 hours after she had 2 units of red blood cells for ongoing anemia that was worsening her fatigue and dyspnea. She has stabilized out, her breathing is improved, her blood pressures are getting better, and she is getting ready for discharge. She has underlying metastatic ovarian cancer, was pending palliative care referral on the outpatient service, and given her acute episode agreed to meet with me today. The goal of the visit today is to establish goals of care, rapport, and begin advanced care planning. Patient's metastatic ovarian cancer, will was diagnosed in April/2015 from the spleen. She does have known metastatic disease to the left breast, spleen, sacrum, and lymph nodes. Her last CT of the abdomen scan showed a large mass 7.3 x 5.4 x 5.6 which have been progressing, and partially blocking the rectal lumen. 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 She had a total abdominal hysterectomy/bilateral salpingo-oophorectomy 07/2014, at that point in time received adjuvant carboplatinum and Taxol. She did develop a pulmonary embolism 08/2014. She has had multiple lines of chemotherapy, including also radiation to the left pelvic mass in 07/2017. Currently she has been rechallenged with carboplatinum/Taxol from 11/30/2018 on a weekly low dose. She has been having worsening anemia, worsening renal function, with resulting recalcitrant refractory hypertension. Patient's social situation as the complexity, her does have serious bladder cancer and is scheduled for a very serious surgery today down at [facility]. She is feeling quite badly and somewhat anxious that she is not present. She presents with fairly low symptom burden with constipation and fatigue most problematic, with dyspnea and some functional decline. 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 Support System: Patient has been for over 53 years. They have 2 daughters Flori who came from [place] and is with her father during surgery, and Carlie who is from [place] who is with her mother today. They have had quite a colorful life, they came from [place], lived in [place] for 15 years, as well as [place] in [place] in [facility]. 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 She has been retired now for 20 years on [employer]. They have a beautiful home, but also have a townhouse in [place] near their daughter but that is not currently available as they are renting it out. They are struggling to figure out both the short and long-term plan. Family History - Family History Family History: Mother: (3 aunts who had CA), CAD, Father: , CAD, Other family: Medications/Allergies - Medications Active Medication List: Active Medications Acetaminophen (Tylenol) 650 mg PO Q4HR PRN PRN Reason: Pain 1 to 4 Albuterol () 2.5 mg INH Q4HR PRN PRN Reason: Wheezing Aspirin (Ecotrin) 81 mg PO DAILY [facility] Last Admin: 01/04/19 08:45 Dose: 81 mg Atorvastatin Calcium (Lipitor) 20 mg PO QPM [facility] Last Admin: 01/03/19 20:22 Dose: 20 mg Carvedilol (Coreg) 12.5 mg PO BID [facility] Last Admin: 01/04/19 08:46 Dose: 12.5 mg Cholecalciferol (Vitamin D3) 2,000 unit PO DAILY [facility] Last Admin: 01/04/19 08:46 Dose: 2,000 unit Clonidine HCl (Catapres) 0.2 mg PO DAILY [facility] Last Admin: 01/04/19 08:46 Dose: 0.2 mg Docusate Sodium (Colace 250mg Capsule) 250 - 500 mg PO DAILY [facility] Last Admin: 01/04/19 08:46 Dose: 250 mg Enoxaparin Sodium (Lovenox) 40 mg SUBQ DAILY [facility] Last Admin: 01/04/19 08:46 Dose: Not Given Hydralazine HCl (Apresoline) 50 mg PO Q6H [facility] Last Admin: 01/04/19 06:25 Dose: 50 mg Multivitamins (Theragran) 1 tab PO DAILYWM [facility] Last Admin: 01/04/19 08:45 Dose: 1 tab Ondansetron HCl (Zofran Inj) 4 mg IVP Q6HR PRN PRN Reason: Nausea / Vomiting Last Admin: 01/03/19 06:41 Dose: 4 mg Prochlorperazine Edisylate (Compazine Inj) 10 mg IVP Q4HR PRN PRN Reason: Nausea / Vomiting Last Admin: 01/03/19 16:06 Dose: 10 mg Senna (Senokot) 8.6 - 17.2 mg PO DAILY [facility] Last Admin: 01/04/19 08:46 Dose: 8.6 mg Sodium Chloride (Normal Saline Flush 0.9%) 10 ml IVP 0100,0900,1700 [facility] Last Admin: 01/04/19 01:24 Dose: Not Given Sodium Chloride (Normal Saline Flush 0.9%) 10 ml IVP PRN PRN PRN Reason: NEEDED PER PROVIDER ORDERS Last Admin: 01/03/19 09:05 Dose: 10 ml Spironolactone (Aldactone) 25 mg PO DAILY [facility] Aspirin 81 mg PO DAILY PM 02/25/14 Cholecalciferol (Vitamin D3) [Vitamin D3] 2,000 unit PO DAILY 04/17/16 Rivaroxaban [Xarelto] 20 mg PO DAILY PRN 01/13/17 Atenolol 75 mg PO DAILY 06/23/17 Polyethylene Glycol 3350 [Miralax] 17 gm PO DAILY 10/20/17 Sennosides [Senna] 1 tab PO DAILY PRN 10/20/17 Multivitamin [Multivitamins] 1 tab ORAL DAILY 02/23/18 Atorvastatin Calcium 20 mg PO DAILY 08/10/18 Furosemide 20 mg PO DAILY 08/10/18 Spironolactone 50 mg PO BID 11/30/18 cloNIDine HCl [Clonidine HCl] 0.2 mg PO DAILY 01/03/19 hydrALAZINE [Apresoline] 50 mg PO Q6H 01/03/19 - Allergies Allergies/Adverse Reactions: Allergies Allergy/AdvReac Type Severity Reaction Status Date / Time Sulfa (Sulfonamide Allergy Mild Rash Verified 12/29/18 09:30 Antibiotics) risedronate sodium AdvReac Cramps Verified 12/29/18 09:30 [From Actonel] Review of Systems - Constitutional Constitutional: reports: Fatigue. denies: Fever, Chills - Eyes Eyes: reports: Vision loss, Corrective lenses - Ears, Nose & Throat Ears, Nose & Throat: reports: Hearing loss, Hearing aids - Cardiovascular Cardiovascular: reports: Edema (lymphadema on Left result of ankle injury 10 years ago), Exertional dyspnea, Decr. exercise tolerance - Respiratory Respiratory: reports: SOB with exertion. denies: SOB at rest - Gastrointestinal Gastrointestinal: reports: Constipation, Good appetite. denies: Nausea - Musculoskeletal Musculoskeletal: reports: Muscle weakness - Integumentary Integumentary: reports: Dryness - Neurological Neurological: reports: General weakness - Psychiatric Psychiatric: reports: Anxiety (with 's pending surgery). denies: Depression - Hematologic/Lymphatic Hematologic/Lymphatic: reports: Anemia, Blood clots (hx PE) - All Other Systems All Other Systems: reports: Reviewed and negative Physical Exam - Vital Signs Vital Signs: Vital Signs x48h Temp Pulse Resp BP BP Pulse Ox 01/04/19 10:54 68 20 116/62 95 01/04/19 08:49 140/104 H 01/04/19 08:37 36.2 C L 80 22 01/04/19 07:00 76 17 154/81 H 95 01/04/19 06:30 36.5 C 71 18 179/90 H 94 01/04/19 05:00 58 L 13 155/80 H 93 01/04/19 04:00 61 15 176/92 H 95 - Physical Exam General Appearance: positive: No acute distress Eyes Bilateral: positive: Normal inspection ENT: positive: No signs of dehydration Neck: positive: No JVD, Trachea midline Cardiovascular: positive: Regular rate & rhythm Respiratory: positive: No respiratory distress, Breath sounds nml, Diminished in bases Abdomen: positive: Soft, Abnml bowel sounds, Tenderness Skin: positive: Pallor, Dryness Extremities: positive: Pedal edema (slight right up to calf; support stocking on Left) Neurologic/Psychiatric: positive: Oriented x3, Mood/affect nml, Weakness Palliative Care - POLST Patient has POLST: No POLST Status: Full Code (initiated conversation regarding POLST; see conversation) Pain: No pain Tiredness/Fatigue: Moderate (4-6) Drowsiness/Sedation: Moderate (4-6) Nausea: Mild (1-3) Depression: None Anxiety: Moderate (4-6) Dyspnea: Moderate (4-6) (improved) Anorexia: None Sleep: Sleeps well Constipation: Yes, Unmanaged Feelings of wellbeing/Perceived Quality of Life: Worsening Performance Status: Patient reports she has been able to manage her own ADLs, her has been the person who is been doing the grocery shopping and mostly taking care of her. There is concerned particular with the daughter, what kind of support they are going to need, particularly with this acute unexpected hospitalization. - Palliative Care Discussion: Patient's understanding of her illness currently, is that she is running out of options. She has been hopeful to be able to qualify for clinical trial, but given her mixed type of ovarian cancer, it often excludes her. She does unde rstand she is getting palliative treatment only, the goal to extend her quantity of life, she is having more complications related to her treatments including now fairly profound and sustained anemia. She has not asked nor been told her prognosis, and discussing this she felt like it would be helpful to know, particularly in light of advanced care planning and planning for the future. She did give me permission to follow-up with Dr. Willingham and explore this information to add to her understanding. Patient and her have not actually talked much about any of these issues, including planning for end of life despite the seriousness of both her illnesses. They did do some advanced care planning prior to her original surgery as far as [place] etc. but does not recall having any kind of directives or directing their medical care and wishes of details she can remember nor has revisited recently. These are currently locked in a safe, she does believe she has both her daughters listed as follow-up D ALISAA's but is not certain. She did give me permission to move forward and discussed advanced care planning. We talked about the importance of particularly with her frail, having defined DPOA documents that designate her daughters as being able to participate in decision-making if she or her are not. I did provide them with a simple form, and/or encouraged her to get copies further medical team regarding this important issue. We discussed further given that she does have a serious illness, that it is important to particularly defined coming in and out of the hospital system her wishes. Counseling provided regarding the POLST, reviewed CODE STATUS, and expectations of outcomes of people with serious illness. Patient is leaning particularly towards allowing natural . We did discuss in the context of at this point in time she would still be want to hospitalized as she was to treat reversible conditions, but she would not want her suffering prolonged, or intubation at this point. Given her daughter was present, we discussed what were quality of life issues important to her, is important for her to be independent, to be cognizant if she were confused on a permanent basis this would not be quality of life, and at the end of life to be able to in her own home. Results - Lab Results Lab results reviewed: Yes Fish Bones: 01/04/19 05:15 01/04/19 05:15 Lab and Imaging Results: Lab Results x24hrs 01/04/19 01/04/19 01/04/19 Range/Units 06:30 05:15 05:15 WBC (4.8-10.8) x10^3/uL RBC (4.20-5.40) 10^6/uL Hgb (12.0-16.0) g/dL Hct (37.0-47.0) % MCV (81.0-99.0) fL MCH (27.0-31.0) pg MCHC (32.0-36.0) g/dL RDW (12.0-15.0) % Plt Count (130-450) 10^3/uL MPV (7.9-10.8) fL Neut # (Auto) (1.5-6.6) 10^3/uL Lymph # (Auto) (1.5-3.5) 10^3/uL Hubbard # (Auto) (0.0-1.0) 10^3/uL Eos # (Auto) (0.0-0.7) 10^3/uL Baso # (Auto) (0.0-0.1) 10^3/uL Absolute Nucleated RBC x10^3/uL Nucleated RBC % /100WBC Sodium 138 (135-145) mmol/L Potassium 4.2 (3.5-5.0) mmol/L Chloride 106 (101-111) mmol/L Carbon Dioxide 26 (21-32) mmol/L Anion Gap 6.0 (6-13) BUN 64 H (6-20) mg/dL Creatinine 2.1 H (0.4-1.0) mg/dL Estimated GFR (MDRD) 23 L (>89) Glucose 97 (70-100) mg/dL POC Whole Bld Glucose 90 (70 - 100) mg/dL Calcium 8.8 (8.5-10.3) mg/dL Phosphorus 3.5 (2.5-4.6) mg/dL Magnesium 2.7 (1.7-2.8) mg/dL Total Bilirubin 1.3 H (0.2-1.0) mg/dL AST 14 (10-42) IU/L ALT 12 (10-60) IU/L Alkaline Phosphatase 50 (42-121) IU/L B-Natriuretic Peptide 1521 H (5-100) pg/mL Total Protein 5.1 L (6.7-8.2) g/dL Albumin 3.0 L (3.2-5.5) g/dL Globulin 2.1 (2.1-4.2) g/dL Albumin/Globulin Ratio 1.4 (1.0-2.2) 01/04/19 01/03/19 01/03/19 Range/Units 05:15 20:27 17:02 WBC 4.7 L (4.8-10.8) x10^3/uL RBC 2.97 L (4.20-5.40) 10^6/uL Hgb 8.9 L (12.0-16.0) g/dL Hct 27.4 L (37.0-47.0) % MCV 92.3 (81.0-99.0) fL MCH 30.0 (27.0-31.0) pg MCHC 32.5 (32.0-36.0) g/dL RDW 15.7 H (12.0-15.0) % Plt Count 61 L (130-450) 10^3/uL MPV 10.2 (7.9-10.8) fL Neut # (Auto) 3.3 (1.5-6.6) 10^3/uL Lymph # (Auto) 0.9 L (1.5-3.5) 10^3/uL Hubbard # (Auto) 0.4 (0.0-1.0) 10^3/uL Eos # (Auto) 0.1 (0.0-0.7) 10^3/uL Baso # (Auto) 0.0 (0.0-0.1) 10^3/uL Absolute Nucleated RBC 0.00 x10^3/uL Nucleated RBC % 0.0 /100WBC Sodium (135-145) mmol/L Potassium (3.5-5.0) mmol/L Chloride (101-111) mmol/L Carbon Dioxide (21-32) mmol/L Anion Gap (6-13) BUN (6-20) mg/dL Creatinine (0.4-1.0) mg/dL Estimated GFR (MDRD) (>89) Glucose (70-100) mg/dL POC Whole Bld Glucose 116 H 116 H (70 - 100) mg/dL Calcium (8.5-10.3) mg/dL Phosphorus (2.5-4.6) mg/dL Magnesium (1.7-2.8) mg/dL Total Bilirubin (0.2-1.0) mg/dL AST (10-42) IU/L ALT (10-60) IU/L Alkaline Phosphatase (42-121) IU/L B-Natriuretic Peptide (5-100) pg/mL Total Protein (6.7-8.2) g/dL Albumin (3.2-5.5) g/dL Globulin (2.1-4.2) g/dL Albumin/Globulin Ratio (1.0-2.2) 01/03/19 Range/Units 11:44 WBC (4.8-10.8) x10^3/uL RBC (4.20-5.40) 10^6/uL Hgb (12.0-16.0) g/dL Hct (37.0-47.0) % MCV (81.0-99.0) fL MCH (27.0-31.0) pg MCHC (32.0-36.0) g/dL RDW (12.0-15.0) % Plt Count (130-450) 10^3/uL MPV (7.9-10.8) fL Neut # (Auto) (1.5-6.6) 10^3/uL Lymph # (Auto) (1.5-3.5) 10^3/uL Hubbard # (Auto) (0.0-1.0) 10^3/uL Eos # (Auto) (0.0-0.7) 10^3/uL Baso # (Auto) (0.0-0.1) 10^3/uL Absolute Nucleated RBC x10^3/uL Nucleated RBC % /100WBC Sodium (135-145) mmol/L Potassium (3.5-5.0) mmol/L Chloride (101-111) mmol/L Carbon Dioxide (21-32) mmol/L Anion Gap (6-13) BUN (6-20) mg/dL Creatinine (0.4-1.0) mg/dL Estimated GFR (MDRD) (>89) Glucose (70-100) mg/dL POC Whole Bld Glucose 138 H (70 - 100) mg/dL Calcium (8.5-10.3) mg/dL Phosphorus (2.5-4.6) mg/dL Magnesium (1.7-2.8) mg/dL Total Bilirubin (0.2-1.0) mg/dL AST (10-42) IU/L ALT (10-60) IU/L Alkaline Phosphatase (42-121) IU/L B-Natriuretic Peptide (5-100) pg/mL Total Protein (6.7-8.2) g/dL Albumin (3.2-5.5) g/dL Globulin (2.1-4.2) g/dL Albumin/Globulin Ratio (1.0-2.2) Impression and Recommendations - Palliative Care Impression: This is a rodo 78-year-old woman with metastatic ovarian cancer, who is getting palliative chemotherapy. She presents acutely with a hypertensive emergency/pulmonary edema attributed to her recent 2 units of red blood cells s he was to receive the day before. Palliative care introduction to establish rapport, and initiate conversation regarding goals of care and advanced care planning. Palliative care will continue to follow on an outpatient basis. Recommendations/Counseling Done: 1. Metastatic ovarian cancer. Patient having increased sequela from her palliative chemotherapy. Patient currently on carboplatinum/Taxol with next treatment planned on 01/11. She is experiencing worsening renal function, as well as anemia. 2. Constipation. This is multifactorial in origin, patient does have chronic constipation, but also has a lower abdominal mass pressing into the rectal lumen. Counseling provided regarding goals to keep her bowels soft and regular. Counseling provided to initiate MiraLAX for softening, and discontinued BENNIE, this is her "mush", and instructions given for Senna conc 8.6 mg tabs to take 1- 2 daily with goal to go daily, this is her "push". 3. Dysgeusia. Patient reports no weight loss, feels she does have a good appetite, no trouble swallowing mostly experiencing taste changes. She she has been able to address this with frequent oral care. 4. Peripheral neuropathy. Patient finds that bothersome, it is chemotherapy- induced. At this point in time she has no pain needing pharmacologic intervention, she does have some numbness. 5. Advanced care planning. Counseling provided regarding advanced care documents, D POA, and recommendation and follow through on the POLST. Patient's goals at this point in time were to allow natural , to use the middle ground of selective treatments weighing benefits and burdens of treatments as they come up, and would accept hospitalization for reversible conditions, and counseling provided regarding hospice and end of life. Given is not present, we did discuss with follow-up on appointment already scheduled 01/11 to complete the form after family has had a chance for conversation. Counseling provided regarding the need to have these difficult conversations and would recommend also exploring her 's wishes given their current situation. Addendum. Did follow-up with Dr. Willingham, Does feel patient's prognosis is probably 6 months or less, and would qualify for hospice if her goals were in alignment. We did discuss at the current time, patient is still perceiving her quality of life is acceptable, and most likely would continue palliative treatment until that threshold was met. We will continue to support and explore with patient further regarding goals of care at our next meeting. Resources and discussion regarding the continuum of care regarding home health support assisted care, hospice, and SNF placement particularly regarding her 's current condition. List of local agencies given, along with phone number to reach out if needed further assistance. Time Spent: 75 minutes is greater than 50% of this done in counseling regarding advanced care planning, anticipatory guidance, the continuum of care as well as establishing rapport. The plan will be to follow-up on outpatient basis, they have been given contact numbers if need to initiate contact sooner.
[2019-01-04 13:28] VITALS: BP 129/61
[2019-01-05] MEDS ORDERED: SPIRONOLACTONE 25 MG TABLET PO SCH (09:00)
--- NOTE | 2019-01-05 15:36 | DISCHARGE SUMMARY ---
Discharge Summary Admit Date: 01/02/19 Discharge Date: 01/04/19 Discharging Provider: Dr Nargis Waddell Primary Care Provider: Dr Catalina Keita Code Status: Attempt Resuscitation Condition at Discharge: Stable Discharge Disposition: 01 Home, Self Care - DIAGNOSES Admission Diagnoses: (1) Hypertensive emergency (2) Acute heart failure (3) CKD (chronic kidney disease) (4) Ovarian cancer (5) Anemia associated with chemotherapy (6) Thrombocytopenia (7) HARI on CPAP Discharge Diagnoses with Status of Each Condition: See below - HPI History of Present Illness: From the admission H&P of Dr Jermain Conroy: This is a very pleasant 78 year old female with a past medical history significant for metastatic ovarian cancer, CKD, and resistant hypertension who presents from home complaining of worsening shortness of breath. She states her symptoms began about a week ago but she was able to ambulate without difficulty. Over the last couple of days she became more dyspneic and today she seeked medical attention. She reports worsening lower extremity edema but denies orthopnea. She has had pleuritic chest pain that is present when she coughs. She notes an occasional nonproductive cough. Today she was nauseous and reports an episode of emesis. She tells me that she received two units of PRBC's yesterday for her anemia. She does not believe that this made her dyspnea more significant. This was the first time she had received a transfusion. She denies fevers, chills, dysuria, urgency, dizziness, and lightheadedness. She also noticed today that her blood pressure was significantly elevated at >200 systol ic. She reports her blood pressure has been difficult to control and that she is on multiple antihypertensives which she did take today. She reports no prior history of heart failure. She reports a prior history of PE for which she took Lovenox. This was in 2014 and she is no longer taking Lovenox. She does take Xarelto as needed for when she goes on long trips. The last time she took a dose was over one year ago. She is currently receiving carbo/Taxol on a weekly basis and the last treatment was this past friday. In the ER, she was found to be hypertensive on arrival with a blood pressure of 241/146, tachycardic in the 110's, and hypoxic with an oxygen saturation of 88% on room air which improved to mid 90's with 2L nasal cannula. Labs were significant for a creatinine of 1.5 which appears to be her most recent baseline. Her troponin was elevated at 37.1. BNP was also elevated at 3198 with no prior lab value available. Chest x-ray was concerning for pulmonary vascular congestion. She had a CTA of the chest completed which showed no pulmonary embolism and no consolidation but did show small bilateral pleural effusions. She was started on a Nitroglycerin infusion and given a dose of Lasix IV with improvement in her symptoms. She will be admitted for further management. Of note, she is schedule to meet with Palliative Care for an initial consult in the upcoming week. - HOSPITAL COURSE Hospital Course: (1) Hypertensive emergency She has a moderate renal artery stenosis on one side, per the admission H&P, and has difficulty to control BP. Her blood pressure at admission was 240/140, and she needed an iv NTG drip in the ICU, plus her other meds for BP control. Atenolol was changed to Coreg, as a better agent in CHF. Her BP improved to 140-150/80-90, and the iv NTG was weaned to off over several hours. The iv Lasix (see #3) also helped control BP. (2) Renal artery stenosis Per the H&P, she has this diagnosis and we continued her daily ASA, watching for bleeding with the low plt count. She reports an upcoming new Nephrology appointment next week. (3) Flash pulmonary edema The CXR was read as having pulmonary vascular congestion and she needed supplemental oxygen and the BNP was as high at 3000's and yuridia even further to the 5000's. We continued iv Lasix for 2 days. She became 1.5 L(-) in fluid balance. The BNP dropped to 1500. The oxygen was weaned to off before discharge. An Echo was ordered and showed LVH with normal LVEF of 65%. The pulmonary edema was felt to have been caused by malignant HTN. (4) Elevated troponin She had nearly a quadrupling of her initial hs-troponin, then the troponins plat eaued, suggesting it yuridia from CHF. The EKG showed no ischemic changes from the admission EKG. She was continued on her home doses of aspirin and statin. (5) CKD (chronic kidney disease) Her baseline creat is 1.5 and in the ER creat was 1.5, but yuridia to 1.6. The Lisinopril was stopped due to elevated creatinine, but her other BP meds were continued. Decision regarding Lisinopril resumption should be made by the Item Processing Clerk, who she is scheduled to see in 2 days. Atenolol was changed to Coreg by the admitting Computer Information Science Professor and she was discharged on this. (6) Anemia associated with chemotherapy She had received a transfusion 3 days ago, which may have added to volume overload, causing the pulmonary edema. Her Hgb was stable while here: (7) Thrombocytopenia Drop in plts apparently occurred after chemo 5 days ago. The plts were 86K, 70K, and 61K while here. Lovenox was not given. (8) Chemotherapy-induced nausea She reported feeling this way after chemo. Antiemetics were helping, she was not vomiting up her pills. (9) HARI on CPAP Her home device was ordered to use while here. (10) Ovarian cancer She has been battling this for about 4 years and just 1 mo ago the chemo was changed from monthly to weekly. - ALLERGIES Allergies/Adverse Reactions: Allergies Allergy/AdvReac Type Severity Reaction Status Date / Time Sulfa (Sulfonamide Allergy Mild Rash Verified 12/29/18 09:30 Antibiotics) sulfamethoxazole Allergy Unknown Verified 01/05/19 07:36 [From Septra] trimethoprim [From Septra] Allergy Unknown Verified 01/05/19 07:36 risedronate sodium AdvReac Cramps Verified 12/29/18 09:30 [From Actonel] - MEDICATIONS Home Medications: Ambulatory Orders Medication Instructions Recorded Confirmed Aspirin 81 mg PO DAILY PM 02/25/14 01/03/19 Cholecalciferol (Vitamin D3) 2,000 unit PO DAILY 04/17/16 01/03/19 [Vitamin D3] Rivaroxaban [Xarelto] 20 mg PO DAILY PRN 01/13/17 01/03/19 Polyethylene Glycol 3350 [Miralax] 17 gm PO DAILY 10/20/17 01/03/19 Sennosides [Senna] 1 tab PO DAILY PRN 10/20/17 01/03/19 Multivitamin [Multivitamins] 1 tab ORAL DAILY 02/23/18 01/03/19 Atorvastatin Calcium 20 mg PO DAILY 08/10/18 01/03/19 Furosemide 20 mg PO DAILY 08/10/18 01/03/19 Spironolactone 50 mg PO BID 11/30/18 01/03/19 cloNIDine HCl [Clonidine HCl] 0.2 mg PO DAILY 01/03/19 01/03/19 hydrALAZINE [Apresoline] 50 mg PO Q6H 01/03/19 01/03/19 Carvedilol [Coreg] 12.5 mg PO BID #60 tablet 01/04/19 - PHYSICAL EXAM AT DISCHARGE General Appearance: positive: No acute distress, Alert Eyes Bilateral: positive: Normal inspection ENT: positive: Other (Moist oral mucosa) Neck: positive: Nml inspection, No JVD Respiratory: positive: No respiratory distress, Breath sounds nml Cardiovascular: positive: Regular rate & rhythm, No murmur Abdomen: positive: Non-tender Skin: positive: Pallor Extremities: positive: No pedal edema Neurologic/Psychiatric: positive: Oriented x3, Other ( grossly intact) - LABS Result Diagrams: 01/04/19 05:15 01/04/19 05:15 - DIAGNOSTIC IMAGING Diagnostic Imaging Results: Final report reviewed - FOLLOW UP Follow Up: See Dr Catalina Keita in follow-up and keep the upcoming Nephrology appointment. - TIME SPENT Time Spent in Discharge (Minutes): 60
== END 2019-01-04 14:28 | disposition home or self-care (01) | DRG 305 ==
LOC: ED 17:49 → ICU 21:40
PROVIDERS: ADMIT Internal Medicine; ATTEND Internal Medicine
DX: I16.1 Hypertensive emergency (principal); I11.0 Hypertensive heart disease with heart failure; C56.9 Malignant neoplasm of unspecified ovary; C56.1 Malignant neoplasm of right ovary; C79.81 Secondary malignant neoplasm of breast; E78.00 Pure hypercholesterolemia, unspecified; C78.89 Secondary malignant neoplasm of other digestive organs; I13.0 Hypertensive heart and chronic kidney disease with heart failure and stage 1 through stage 4 chronic kidney disease, or unspecified chronic kidney disease; I50.9 Heart failure, unspecified; N18.9 Chronic kidney disease, unspecified; D64.81 Anemia due to antineoplastic chemotherapy; D69.59 Other secondary thrombocytopenia; G62.2 Polyneuropathy due to other toxic agents; R11.2 Nausea with vomiting, unspecified; T45.1X5A Adverse effect of antineoplastic and immunosuppressive drugs, initial encounter; G47.30 Sleep apnea, unspecified; D51.9 Vitamin B12 deficiency anemia, unspecified; D63.8 Anemia in other chronic diseases classified elsewhere; G47.33 Obstructive sleep apnea (adult) (pediatric); I70.1 Atherosclerosis of renal artery; R79.89 Other specified abnormal findings of blood chemistry; K59.09 Other constipation; M19.90 Unspecified osteoarthritis, unspecified site; M81.0 Age-related osteoporosis without current pathological fracture; H91.90 Unspecified hearing loss, unspecified ear; H54.7 Unspecified visual loss; Z51.5 Encounter for palliative care; Y92.531 Health care provider office as the place of occurrence of the external cause; Z79.82 Long term (current) use of aspirin; Z85.828 Personal history of other malignant neoplasm of skin; Z86.711 Personal history of pulmonary embolism; Z90.79 Acquired absence of other genital organ(s)
CPT/HCPCS: 36415; 71045; 71275; 80053; 82803; 83690; 83735; 83880; 84100; 84443; 84484; 85025; 85610; 85730; 87150; 93005; 93306; 96374; 96375; 99223; 99285; 99291; A9270; J1940; Q9967

== ENCOUNTER 2019-01-11 09:04 | Outpatient (CLI) | payer MEDICARE, OTHER ==
--- NOTE | 2019-01-11 15:04 | CONSULTATION NOTE ---
Palliative Care Follow Up - Referral Referring Provider: Dr. Sina Willingham Time of Visit: 02-05 Referral setting: [facility] [place] Referral Reason: Goals of Care/Anxiety/Recurrent Ovarian CA - Information Sources Records reviewed: Previous records reviewed History/Review of Systems obtained from: Patient, Family (daughter Gena present for visit) Exam limitations: No limitations - History of Present Illness Update Brief HPI Update: This is a rodo 78-year-old woman originally from [place], who is recently hospitalized acutely with hypertensive emergency, acute heart failure, CKD, anemia associate with chemotherapy, and was discharged on 01/04/2019. She is continued to improve, she has seen the construction trades teacher, and they did do some medication adjustments. She does present today is hypertensive 197/97 pulse 67 O2 sats 97%, though her home log has her much more reasonable with 135/70-80, in exploring further it turns that she has not taken her medications this morning, and took them at the time of our visit. Patient does have known metastatic ovarian cancer, with mets to the left breast, spleen, sacrum, and adenopathy. She has been on multiple lines of chemotherapy, and just met with the oncologist are going to hold her chemotherapy today, and reduce intensity by doing 1 week x 2 then third week off in 3 weeks cycles. With the thought that she was having more bone marrow suppression. She does understand this is palliative in nature, and is waiting benefits and burdens of moving forward, recognizing treatment sometimes is worse than the disease. She remains quite tearful through this conversation, but quite pragmatic. She has actually been feeling pretty well overall, her most significant symptom has been persistent fatigue. We agreed to meet today, to further follow-up on advanced care planning. Her daughter Flori is present for the visit, she does report she found her DPOAE as well as her living will, the focus of our counseling today was on the POLST and her goals of care. Social History - Living Situation Living arrangement: At home Living Situation: With spouse/s.o. Support System: Patient stayed with daughter in [place] for a few days after acute hospitilization, her is just home from [facility] for serious surgery related to his bladder cancer. They both are doing fairly well though but have many questions about resources and how best to negotiate them. Her daughter Flori from [place] is present for a few more days, they live independently in the home in [place]. Medications/Allergies - Medications Home Medications: Ambulatory Orders Medication Instructions Recorded Confirmed Aspirin 81 mg PO DAILY PM 02/25/14 01/11/19 Cholecalciferol (Vitamin D3) 2,000 unit PO DAILY 04/17/16 01/11/19 [Vitamin D3] Rivaroxaban [Xarelto] 20 mg PO DAILY PRN 01/13/17 01/11/19 Polyethylene Glycol 3350 [Miralax] 17 gm PO DAILY 10/20/17 01/11/19 Sennosides [Senna] 1 tab PO DAILY PRN 10/20/17 01/11/19 Multivitamin [Multivitamins] 1 tab ORAL DAILY 02/23/18 01/11/19 Atorvastatin Calcium 20 mg PO DAILY 08/10/18 01/11/19 Furosemide 20 mg PO DAILY 08/10/18 01/11/19 hydrALAZINE [Apresoline] 50 mg PO Q6H 01/03/19 01/11/19 Carvedilol [Coreg] 12.5 mg PO BID #60 tablet 01/04/19 01/11/19 - Allergies Allergies/Adverse Reactions: Allergies Allergy/AdvReac Type Severity Reaction Status Date / Time Sulfa (Sulfonamide Allergy Mild Rash Verified 01/11/19 09:06 Antibiotics) sulfamethoxazole Allergy Unknown Verified 01/11/19 09:06 [From Septra] trimethoprim [From Septra] Allergy Unknown Verified 01/11/19 09:06 risedronate sodium AdvReac Cramps Verified 01/11/19 09:06 [From Actonel] Review of Systems - Constitutional Constitutional: reports: Fatigue (some mild improvement), Weight loss. denies: Fever, Chills - Ears, Nose & Throat Ears, Nose & Throat: reports: Hearing loss, Dry mouth - Cardiovascular Cardiovascular: reports: Edema, Decr. exercise tolerance - Respiratory Respiratory: denies: SOB at rest - Gastrointestinal Gastrointestinal: reports: Nausea, Good appetite. denies: Abdominal pain, Constipation (has been aggressively following bowel program) - Musculoskeletal Musculoskeletal: reports: Stiffness, Muscle weakness - Integumentary Integumentary: reports: Dryness - Neurological Neurological: reports: General weakness - Psychiatric Psychiatric: reports: Depression, Anxiety - Hematologic/Lymphatic Hematologic/Lymphatic: reports: Anemia - All Other Systems All Other Systems: reports: Reviewed and negative Physical Exam - Vital Signs Pulse Rate: 67 Respiratory Rate: 18 O2 Saturation: 97 (ra @ rest) Blood Pressure: 197/97 - Physical Exam General Appearance: positive: Alert, Mild distress Eyes Bilateral: positive: Normal inspection ENT: positive: No signs of dehydration Neck: positive: No JVD, Trachea midline Cardiovascular: positive: Regular rate & rhythm Respiratory: positive: No respiratory distress, Diminished in bases. negative: Wheezes, Rales, Rhonchi Abdomen: positive: Soft, Tenderness Skin: positive: Pallor, Dryness Extremities: positive: Pedal edema (Left greater than right) Neurologic/Psychiatric: positive: Oriented x3, Mood/affect nml, Weakness, Other (appropriately tearful with conversation) Palliative Care Pain: No pain Tiredness/Fatigue: Mild (1-3) Drowsiness/Sedation: None Nausea: Mild (1-3) Depression: Mild (1-3) Anxiety: Mild (1-3) Dyspnea: Mild (1-3) Anorexia: Mild (1-3) Sleep: Sleeps well Constipation: Yes, Managed Feelings of wellbeing/Perceived Quality of Life: Good, Acceptable Performance Status: Patient at this point in time is independent in her ADLs, does have executive admin to help with housework, does find herself with some activity intolerance and fatigue. I would put her at a PPS of 70% - Palliative Care Discussion: Patient does understand the seriousness of her illness, I do not believe she understands to limited time expectancy, though the goal is to extend both quantity and quality of life with ongoing chemotherapy. These decisions will be made weighing benefits and burdens moving forward. She did locate the POA and living will, she will have her daughter forward this to me to get in the medical record. She and her are D POA for each other, and then the girls are as back-up. Counseling provided regarding the POLST, we did complete the form, but she did want to include her in the conversation. We did look at her goals being focusing on quality of life, treating reversible conditions, and the end of life a comfortable respectful she would like to be at home. Looked at do not attempt resuscitation/allow natural and selective treatment and the goal f or again transfer to the hospital if indicated but avoiding intensive care and DNI. She would like a comfort focused because treatment in the context of not prolonging suffering. She would at this point in time except antibiotics, and depending on the situation weighing benefits and burdens looking at medical nutrition and we did agree this was not something we needed to decide at this point in time. Her has had serious surgery, and has cancer as well, they have not really discussed long-term plans regarding this. We did discuss resources in the community, they do have long-term care insurance, though does not sound like either one need jail or skilled care at this point. may need follow-up with the wound ostomy care nurse, and looking at care closer to home. Patient feels very comfortable with her relationship with her PCP Dr. Keita, and feels well supported by her oncology team. She did meet Dr. Manzanares who made medication adjustments as well. Results - Lab Results Lab results reviewed: Yes Lab and Imaging Results: Patient did receive a transfusion of 2 units, prior to hospitalization which triggered her CHF. She today is white count 4.6, hemoglobin 9.4, hematocrit 29.5, BUN 55, creatinine 1.5, and GFR 34 I did send a copy of her labs to Dr. Manzanares per her request Impression and Recommendations - Palliative Care Impression: This is a rodo 78-year-old woman with metastatic ovarian cancer, who is getting palliative chemotherapy. She has had a recent acute hospitalization for hypertensive emergency/pulmonary edema but is recovering nicely. She still has residual fatigue, she does present hypertensive today, but has not taken her meds yet. Palliative care to provide support regarding symptom management as well as anticipatory guidance, focus on advanced care planning today. Recommendations/Counseling Done: 1. Metastatic ovarian cancer. Oncology is going to change her treatment pattern to decrease toxicity, with hope to still control her disease while not causing more side effects. She did not receive chemotherapy today, but it is scheduled for next week. Hopefully to give her more of a break. 2. Constipation. This is multifactorial in origin, she reports currently she is doing well with her bowel program using MiraLAX and dots. 3. Hypertension. Patient did have multiple medication changes with Dr. Manzanares and with recent hospitalization. Agreed to send him copy of the labs, encouraged to continue to keep track of her blood pressures and she does have follow-up with her PCP next week. She is to notify her sooner if stays on the high side, most likely did not take meds today. We did discuss taking her blood pressure at different times of the day. 4. Advanced care planning. Counseling provided with daughter Flori and patient, Complete POLST as DNA R/selective treatments and signed, she will though discuss with her prior to herself finally signing it. We did discuss he is welcome to call if he has any further questions or we can meet again. Counseling provided regarding increased support at home, in anticipation also for care needed in the future, I did recommend make contact with [facility] or other service. Patient does have long-term care insurance but would need to be needing personal care to access. Did discuss current support which is housekeeping, could ask for more assistance as well as follow-up if she available for transportation. has been the main prior caregivers prior to this, daughter from [place] Flori is here but will be leaving in a few days, daughter Elizabeth in [place] does provide support and oversight as well. Dr. Willingham does indicate in his notes patient would be candidate for hospice and meet the less than 6 months criteria but this would need to be in alignment with patient's goals, currently she still finds the benefit outweighs the burden of continuing with support for treating her cancer. Counseling provided regarding the goals of palliative care to provide support and anticipatory guidance, and assist with shared decision-making as these issues arise. Time Spent: See minutes with greater than 50% of this done in counseling regarding POLST, symptom burden, goals of care, and anticipatory guidance. Agreed to follow-up next week, and then decide on frequency of palliative care visits.
== END 2019-01-11 09:05 | disposition home or self-care (01) ==
LOC: PC 09:04
PROVIDERS: ATTEND Nurse Practitioner Adult Health
DX: Z51.5 Encounter for palliative care (principal); C56.9 Malignant neoplasm of unspecified ovary; C78.89 Secondary malignant neoplasm of other digestive organs; C77.9 Secondary and unspecified malignant neoplasm of lymph node, unspecified; C79.51 Secondary malignant neoplasm of bone; C79.81 Secondary malignant neoplasm of breast; K59.00 Constipation, unspecified; I10 Essential (primary) hypertension; Z79.899 Other long term (current) drug therapy
CPT/HCPCS: 99215

== ENCOUNTER 2019-01-18 12:30 | Outpatient (CLI) | payer MEDICARE, OTHER ==
--- NOTE | 2019-01-18 18:27 | CONSULTATION NOTE ---
Palliative Care Follow Up - Referral Referring Provider: Dr. Sina Willingham Time of Visit: [id number] Referral setting: [facility] – [place] Referral Reason: Recurrent Ovarian Cancer/Anxiety - Information Sources Records reviewed: Previous records reviewed History/Review of Systems obtained from: Patient Exam limitations: No limitations - History of Present Illness Update Brief HPI Update: This is a rodo 78-year-old woman who was recently hospitalized acutely with hypertensive emergency and flash pulmonary edema. She has seen the senior linux administrator, they have made some medication adjustments, she is still running somewhat on the high side but much improved, it is attributed to renal aortic stenosis. Patient shows me her medications, and adjustments, as well as her log her medication list is reconciled. Patient does have known metastatic ovarian cancer with mets to the left breast, spleen, sacrum and known lymphadenopathy. She has been on multiple lines of chemotherapy. Her original diagnosis was in 03/2014, with recurrence diagnosed in 04/2015. She is currently receiving weekly carbo/Taxol since July/2018, she has had some fatigue, anemia requiring transfusion, and has had her Ca1 25 increased to 275.6. She is not having any pain, she is having some lower extremity edema, her bowels are moving on a regular basis, no nausea, her most significant symptom has been persistent fatigue and ongoing intermittent anxiety. Social History - Living Situation Living arrangement: At home Living Situation: With spouse/s.o. Support System: Patient has been 53 years, only had serious surgery for his bladder cancer. They have 2 daughters, who had provided support through that surgical episode, they are currently at home with housekeeping support and home health, but doing fairly well. Her daughter Elizabeth does live in [place], and her other daughter Flori lives in [place]. Medications/Allergies - Medications Home Medications: Ambulatory Orders Medication Instructions Recorded Confirmed Aspirin 81 mg PO DAILY PM 02/25/14 01/18/19 Cholecalciferol (Vitamin D3) 2,000 unit PO DAILY 04/17/16 01/18/19 [Vitamin D3] Rivaroxaban [Xarelto] 20 mg PO DAILY PRN 01/13/17 01/18/19 Polyethylene Glycol 3350 [Miralax] 17 gm PO DAILY 10/20/17 01/18/19 Sennosides [Senna] 1 tab PO DAILY PRN 10/20/17 01/18/19 Multivitamin [Multivitamins] 1 tab ORAL DAILY 02/23/18 01/18/19 Atorvastatin Calcium 20 mg PO DAILY 08/10/18 01/18/19 Furosemide 40 mg PO DAILY 08/10/18 01/18/19 hydrALAZINE [Apresoline] 50 mg PO Q6H 01/03/19 01/18/19 Carvedilol [Coreg] 25 mg PO BID 01/18/19 01/18/19 - Allergies Allergies/Adverse Reactions: Allergies Allergy/AdvReac Type Severity Reaction Status Date / Time Sulfa (Sulfonamide Allergy Mild Rash Verified 01/11/19 09:06 Antibiotics) sulfamethoxazole Allergy Unknown Verified 01/11/19 09:06 [From Septra] trimethoprim [From Septra] Allergy Unknown Verified 01/11/19 09:06 risedronate sodium AdvReac Cramps Verified 01/11/19 09:06 [From Actonel] Review of Systems - Constitutional Constitutional: reports: Fatigue, Weight gain. denies: Fever, Chills - Ears, Nose & Throat Ears, Nose & Throat: reports: Hearing loss - Cardiovascular Cardiovascular: reports: Edema, Decr. exercise tolerance - Respiratory Respiratory: denies: SOB at rest - Gastrointestinal Gastrointestinal: reports: Abdominal distention (sliglht), Good appetite. denies: Constipation, Nausea - Musculoskeletal Musculoskeletal: reports: Stiffness, Muscle weakness - Integumentary Integumentary: reports: Dryness - Neurological Neurological: reports: General weakness - Psychiatric Psychiatric: reports: Anxiety - Hematologic/Lymphatic Hematologic/Lymphatic: reports: Anemia - All Other Systems All Other Systems: reports: Reviewed and negative Physical Exam - Vital Signs Temperature: 36.7 C Pulse Rate: 73 Respiratory Rate: 16 Blood Pressure: 158/78 - Physical Exam General Appearance: positive: No acute distress, Alert Eyes Bilateral: positive: Normal inspection ENT: positive: No signs of dehydration Neck: positive: No JVD, Trachea midline Respiratory: positive: No respiratory distress Abdomen: positive: Soft Skin: positive: Dryness Extremities: positive: Pedal edema (LE edema; has fitted stocking on left from previous ankle injury; presents with 1+ up to midcalf right) Neurologic/Psychiatric: positive: Oriented x3, Mood/affect nml Palliative Care - POLST Patient has POLST: Yes POLST Status: DNR, Selective Treatment Pain: No pain Tiredness/Fatigue: Moderate (4-6) Drowsiness/Sedation: None Nausea: None Depression: Mild (1-3) Anxiety: Moderate (4-6) Dyspnea: None Anorexia: None Sleep: Variable sleep pattern Constipation: No Feelings of wellbeing/Perceived Quality of Life: Fair, Acceptable Performance Status: Patient independent in ADLs, does have some assistance with housekeeping. They are managing at home by themselves, they do have housekeeping support. She has decreased her activity, she usually been a person who is frequent walks, but has been impacted by her fatigue and anemia. - Palliative Care Discussion: Discussed with patient regarding follow-up on POLST. She did speak with her , in fact he filled out one for himself. They were able to locate documents and she will have that again emailed to me, she had that her daughter taking care of that. Her POLST as DNA R/selective treatments. Patient continues to process just the seriousness of her illness, the multiple things the been happening over the last few months, and trying to figure out how to reconcile that she is feeling pretty good, but her disease is pretty bad. She continues to hope for the best, counseling provided regarding techniques around coping, encouraged to set priorities, and communication with her family. Results - Lab Results Lab results reviewed: Yes Lab and Imaging Results: 01/11 BUN 55; creatinine 1.4; GFR 34; 01/15 WBC 4.2; 8.1 hemoglobin; 26.5 hematocrit. Impression and Recommendations - Palliative Care Impression: This is a rodo 78-year-old woman with metastatic ovarian cancer who is currently receiving palliative chemotherapy. She continues with residual fatigue, anemia, and is getting treated for her hypertension. Palliative care to continue provide support regarding symptom management, anticipatory guidance, and transition to hospice when appropriate. Recommendations/Counseling Done: 1. Metastatic ovarian cancer. Patient is receiving her chemotherapy weekly with 2 weeks on 1 week off, with hope to decrease side effects. Patient is hoping for increased quality as well as quantity of life as a goal, had received 2 units of packed red blood cells during recent acute hospitalization. 2. Constipation. This is multifactorial in origin, she is currently controlling her constipation with titration of MiraLAX. 3. Hypertension. Patient with recent new multiple medication changes, she is to follow-up with Dr. Manzanares by email tomorrow. She does have log, addressed questions as able, and encouraged communication if feels like needs to meet with her sooner. 4. Anxiety. Counseling provided regarding normalizing feelings of grief and loss, and living in the uncertainty of serious illness. 5. Advanced care planning. Patient did complete and signed POLST, is already signed by myself DNA R/selective treatment. She is to get a copy to me as well as her D POA to be able to put in medical records. She feels like they are doing fairly well at home, with her recent illnesses well. They do have home health for support, as well as housekeeping. She does not see any issues at this point in time. Time Spent: 45 minutes with greater than 50% of this done in counseling regarding management of anxiety, anticipatory guidance, as well as coordination of care with oncology team.
== END 2019-01-18 12:31 | disposition home or self-care (01) ==
LOC: PC 12:30
PROVIDERS: ATTEND Nurse Practitioner Adult Health
DX: Z51.5 Encounter for palliative care (principal); C56.9 Malignant neoplasm of unspecified ovary; C77.9 Secondary and unspecified malignant neoplasm of lymph node, unspecified; C78.89 Secondary malignant neoplasm of other digestive organs; C79.51 Secondary malignant neoplasm of bone; C79.81 Secondary malignant neoplasm of breast; K59.00 Constipation, unspecified; I10 Essential (primary) hypertension; F41.9 Anxiety disorder, unspecified; Z79.899 Other long term (current) drug therapy; Z66 Do not resuscitate
CPT/HCPCS: 99215

== ENCOUNTER 2019-02-15 11:17 | Outpatient (CLI) | payer MEDICARE, OTHER ==
--- NOTE | 2019-02-15 18:20 | CONSULTATION NOTE ---
Palliative Care Follow Up - Referral Referring Provider: Dr. Sina Willingham Time of Visit: [id number] Referral setting: [facility] – [place] Referral Reason: Anxiety/Met ovarian CA - Information Sources Records reviewed: Previous records reviewed History/Review of Systems obtained from: Patient, Family ( Basil present) Exam limitations: No limitations - History of Present Illness Update Brief HPI Update: This is a rodo 78-year-old woman who has metastatic ovarian cancer to the left breast, spleen, sacrum, and adenopathy. She is currently receiving weekly carboplatinum/Taxol since 07/2018. She has been on multiple lines of chemotherapy previously, and her original diagnosis was 03/2014, with recurrence diagnosed in 04/2015. Her Ca1 25 has decreased to 164.4 from 275.6. She continues to have difficulty with anemia, requiring transfusions, she received 2 units last week for a Globin of 7.0 and hematocrit 22.8. She is currently with hemoglobin 9.4 and hematocrit 29.6 today, and receiving her treatment. She continues to be holding her own with her kidney function, though she does have some fluid retention, with increased breathlessness and most likely attributed to the 2 units of blood she received as well as her chemotherapy last week. She did see the maintenance mechanic helper Dr. Manzanares, who has doubled her furosemide to 40 mg twice daily, she has had frequent urination, but without significant weight loss yet. She was told her goal is to lose 4 pounds. She reports her blood pressure still has remained somewhat elevated, but has continued to improve. Her BP today is 146/90. She presents only with moderate symptom burden, she continues with persistent fatigue despite the transfusion. She denies pain, but does continue to have rectal pressure, she is getting her bowels to move at least every other day. She did have some increasing shortness of breath with her fluid retention, this is resolving. She does have some anxiety, but she herself is doing quite well without compression. She has increased lower extremity edema, her rash on her right lower extremity is almost resolved, just some diffuse pinkness. Overall she feels like things are going quite well, her and her are back into their normal routine as best they can given both her health problems. And she is hoping to be able to travel in May to [place]. Social History - Living Situation Living arrangement: At home Living Situation: With spouse/s.o. Support System: Patient feels they are managing well, her is now postop 6 weeks and able to participate in coming to visits. They do have housekeeping assistance, and are able to manage their own ADLs. He does cook again now. They have supportive family, and are hoping to be able to travel coming May for a trip to [place]. Medications/Allergies - Medications Home Medications: Ambulatory Orders Medication Instructions Recorded Confirmed Aspirin 81 mg PO DAILY PM 02/25/14 02/15/19 Cholecalciferol (Vitamin D3) 2,000 unit PO DAILY 04/17/16 02/15/19 [Vitamin D3] Rivaroxaban [Xarelto] 20 mg PO DAILY PRN 01/13/17 02/15/19 Polyethylene Glycol 3350 [Miralax] 17 gm PO DAILY 10/20/17 02/15/19 Sennosides [Senna] 1 tab PO DAILY PRN 10/20/17 02/15/19 Multivitamin [Multivitamins] 1 tab ORAL DAILY 02/23/18 02/15/19 Atorvastatin Calcium 20 mg PO DAILY 08/10/18 02/15/19 Furosemide 40 mg PO BID 08/10/18 02/15/19 hydrALAZINE [Apresoline] 50 mg PO Q6H 01/03/19 02/15/19 Carvedilol [Coreg] 25 mg PO BID 01/18/19 02/15/19 Doxazosin [Cardura] 2 mg PO DAILY 02/09/19 02/15/19 - Allergies Allergies/Adverse Reactions: Allergies Allergy/AdvReac Type Severity Reaction Status Date / Time Sulfa (Sulfonamide Allergy Mild Rash Verified 01/11/19 09:06 Antibiotics) sulfamethoxazole Allergy Unknown Verified 01/11/19 09:06 [From Septra] trimethoprim [From Septra] Allergy Unknown Verified 01/11/19 09:06 risedronate sodium AdvReac Cramps Verified 01/11/19 09:06 [From Actonel] Review of Systems - Constitutional Constitutional: reports: Fatigue (did not improve much with transfusion; still rates 5/10), Weight gain (LE fluid weight;) - Eyes Eyes: reports: Vision loss, Corrective lenses - Cardiovascular Cardiovascular: reports: Edema (worsened with 2 units PRBCs), Exertional dyspnea (improved), Decr. exercise tolerance - Respiratory Respiratory: reports: SOB with exertion. denies: SOB at rest - Gastrointestinal Gastrointestinal: reports: Good appetite, Other (rectal pressure). denies: Abdominal pain, Constipation (going every other day), Nausea - Genitourinary Genitourinary: reports: Frequency - Musculoskeletal Musculoskeletal: reports: Stiffness, Muscle weakness - Integumentary Integumentary: reports: Rash (resolving RLE), Dryness - Neurological Neurological: reports: General weakness - Psychiatric Psychiatric: reports: Anxiety. denies: Depression - Hematologic/Lymphatic Hematologic/Lymphatic: reports: Anemia (received 2 units PRBC last week). denies: Recurrent infections - All Other Systems All Other Systems: reports: Reviewed and negative Physical Exam - Vital Signs Temperature: 36.6 C Pulse Rate: 68 Respiratory Rate: 16 Blood Pressure: 146/90 - Physical Exam General Appearance: positive: No acute distress, Alert Eyes Bilateral: positive: Normal inspection, Other (mild periorbital edema) ENT: positive: No signs of dehydration Neck: positive: No JVD, Trachea midline Cardiovascular: positive: Regular rate & rhythm Respiratory: positive: No respiratory distress, Diminished in bases. negative: Wheezes, Rales, Rhonchi Abdomen: positive: Soft, Nml bowel sounds, Tenderness Skin: positive: Pallor, Dryness, Rash (RLE resolving) Extremities: positive: Full ROM, Pedal edema (2-3+ l> r up to knees) Neurologic/Psychiatric: positive: Oriented x3, Mood/affect nml Palliative Care - POLST Patient has POLST: Yes POLST Status: DNR, Selective Treatment Pain: No pain Tiredness/Fatigue: Moderate (4-6) Drowsiness/Sedation: Moderate (4-6) Nausea: None Depression: None Anxiety: Mild (1-3) Dyspnea: Mild (1-3) Anorexia: None Sleep: Sleeps well (up to void with increased furosemide) Constipation: Yes, Managed, Intermittent constipation Feelings of wellbeing/Perceived Quality of Life: Good, Acceptable, No change Performance Status: Patient is independent in her ADLs, she has started her progressive walking, she reports she can go up to three quarters of a mile. She is always been quite active most of her life. She is limited mostly by her fatigue and her breathlessness though both of these have improved somewhat but not back to her baseline. She is allowing others to do household tasks, and is pacing her activities. - Palliative Care Discussion: Patient does have an understanding of the seriousness of her illness, she continues to hope for the past, and has been able to tolerate her treatment with little severe toxicity. Her symptom management despite her fatigue, has been well controlled and not burdensome for her. She is hopeful to be able to take a trip in [place], with her family. We did discuss in the context of planning around this, if she were functionally well, there would be no reason to worry about the timing of her treatments in the context of her overall goals. We discussed its important that oncology team understands what her wishes are, and can time her treatment and supportive care around this. She will plan to move forward on plans regarding this, as well of course to obtain insurance. Reiterated information that she received from Dr. Peterson, regarding hospice transition points. We discussed it is usually at the point patient and family no longer find toxicities acceptable from current treatment line, or oncology team has limited treatments to be able to offer. She did understand that it is better not to have late referral to hospice, though she does not perceive herself as "hospice material" yet. We did discuss at any point if she decides not to pursue treatment, she would be eligible, but that as long is her definition of quality of life continues in the current context, and she continues with treatment, palliative care would continue to support until his goals no longer were feasible. She is relieved by this information, and agreed to meet on a regular basis to revisit these. Her is quite committed to her, reports he is feeling much better, his plan was to go to the surgery so he would be around to take care of her and her decline. Results - Lab Results Lab results reviewed: Yes Impression and Recommendations - Palliative Care Impression: this is a rodo 78-year-old woman with metastatic ovarian cancer, is currently receiving palliative chemotherapy. She continues with fatigue, recurrent anemia, and getting transfusions. She is working with nephrology regarding her hypertension, and fluid retention. Palliative care to continue provide support regarding symptom management, anticipatory guidance, and transition to hospice when appropriate Recommendations/Counseling Done: 1. Hypertension. Patient does present with fluid retention, she is experiencing increased frequency with urination with increase in furosemide. Counseling provided regarding timing of furosemide to better support good sleep. She has been taking her second dose in the evening, instructed to take between 2 and 3 PM to facilitate better sleep. Patient has been receiving almost a liter with her chemotherapy, in addition with her 2 units of packed red blood cells. Assembler Insulator goals for to have 4 pound weight loss, patient has had hypotension in the past, she will follow-up directly when her 4 pounds are completed. 2. Rectal pressure. This is secondary to tumor burden, she denies any acute pain with this. She is been vigilant as far as keeping her bowels soft, and controlling her constipation with titration of her MiraLAX. 3. Anxiety. Her accompanies her today, his health is improving as well. Counseling provided regarding normalizing feelings regarding grief and loss, responding to friends and family concern, and redirecting conversation. 4. Advanced care planning. Patient does have a complete and signed POLST, with DNA R/selective treatment. I do have a copy of her health directive to physicians, she had taken at home to discuss with her so do not have a copy on record. I will remind her to bring it in again as well. They are hoping to plan a family vacation in May, with friends and family, encouraged to continue to hope for the best and inform her oncology team to be able to plan her treatment schedule around this. Counseling provided regarding the transition from palliative care to hospice and address multiple questions. We will continue to provide support every 2 to 4 weeks. Time Spent: 45 minutes with greater than 50% of this done in counseling regarding goals of care, symptom management, and anticipatory guidance
== END 2019-02-15 11:18 | disposition home or self-care (01) ==
LOC: PC 11:17
PROVIDERS: ATTEND Nurse Practitioner Adult Health
DX: Z51.5 Encounter for palliative care (principal); R53.83 Other fatigue; I10 Essential (primary) hypertension; R19.8 Other specified symptoms and signs involving the digestive system and abdomen; F41.9 Anxiety disorder, unspecified; C56.9 Malignant neoplasm of unspecified ovary; C78.89 Secondary malignant neoplasm of other digestive organs; C79.51 Secondary malignant neoplasm of bone; C79.81 Secondary malignant neoplasm of breast; Z79.899 Other long term (current) drug therapy; Z79.82 Long term (current) use of aspirin; Z66 Do not resuscitate
CPT/HCPCS: 99215

== ENCOUNTER 2019-03-08 10:45 | Outpatient (CLI) | payer MEDICARE, OTHER ==
--- NOTE | 2019-03-08 14:31 | CONSULTATION NOTE ---
Palliative Care Follow Up - Referral Referring Provider: Dr. Sina Willingham Time of Visit: [id number] [place] [facility] [place] Reason: Anxiety/Met Ovarian CA - Information Sources Records reviewed: RN notes reviewed, Previous records reviewed History/Review of Systems obtained from: Patient, Family ( present) Exam limitations: No limitations - History of Present Illness Update Brief HPI Update: This is a rodo 78-year-old woman with metastatic ovarian cancer, currently receiving weekly carboplatinum/Taxol since 07/2018. She has been on multiple lines of chemotherapy previously, with her original diagnosis in 03/2014, with recurrence diagnosed in 04/2015. Her Ca1 25 has continued to decrease, she co ntinues though to struggle with anemia, and it is a presents with a 7.9 hemoglobin. She continues to see her olive grader, she has had elevated blood pressure and difficulties with kidney function, and now she presents with increasing symptoms of fluid retention and persistent lower extremity edema. Her lungs O2 present is clear, she does have a little breathlessness, her blood pressure is good at 143/75. She does have some persistent fatigue, but no pain, intermittent shortness of breath, and feels like her overall quality of life remains acceptable. She is able to ambulate for longer periods of time, she did three quarters of a mile yesterday. She is eating well and is hoping still to make it to [place] in May. Presents with questions today mostly about managing her lower extr emity edema, and checking in about her symptoms and emotional well-being Social History - Living Situation Living arrangement: At home Living Situation: With spouse/s.o. Support System: She lives with her rodo who himself has had health challenges, they are coping and doing fairly well with just housekeeping support. She is having her 4 grandchildren and her brother from [place] coming to visit over the holidays. Medications/Allergies - Medications Home Medications: Ambulatory Orders Medication Instructions Recorded Confirmed Aspirin 81 mg PO DAILY PM 02/25/14 03/08/19 Cholecalciferol (Vitamin D3) 2,000 unit PO DAILY 04/17/16 03/08/19 [Vitamin D3] Rivaroxaban [Xarelto] 20 mg PO DAILY PRN 01/13/17 03/08/19 Polyethylene Glycol 3350 [Miralax] 17 gm PO DAILY 10/20/17 03/08/19 Sennosides [Senna] 1 tab PO DAILY PRN 10/20/17 03/08/19 Multivitamin [Multivitamins] 1 tab ORAL DAILY 02/23/18 03/08/19 Atorvastatin Calcium 20 mg PO DAILY 08/10/18 03/08/19 Furosemide 40 mg PO BID 08/10/18 03/08/19 hydrALAZINE [Apresoline] 50 mg PO Q6H 01/03/19 03/08/19 carvediloL [Coreg] 25 mg PO BID 01/18/19 03/08/19 Doxazosin [Cardura] 2 mg PO BID 02/09/19 03/08/19 - Allergies Allergies/Adverse Reactions: Allergies Allergy/AdvReac Type Severity Reaction Status Date / Time Sulfa (Sulfonamide Allergy Mild Rash Verified 01/11/19 09:06 Antibiotics) sulfamethoxazole Allergy Unknown Verified 01/11/19 09:06 [From Septra] trimethoprim [From Septra] Allergy Unknown Verified 01/11/19 09:06 risedronate sodium AdvReac Cramps Verified 01/11/19 09:06 [From Actonel] Review of Systems - Constitutional Constitutional: reports: Fatigue, Weight loss. denies: Fever, Chills - Eyes Eyes: reports: Vision loss, Corrective lenses - Ears, Nose & Throat Ears, Nose & Throat: reports: Hearing loss - Cardiovascular Cardiovascular: reports: Edema (worsening LE; has support hose on), Exertional dyspnea, Decr. exercise tolerance (still able to ambulate 3/4 mile last couple of days;) - Respiratory Respiratory: reports: SOB with exertion. denies: SOB at rest - Gastrointestinal Gastrointestinal: reports: Good appetite. denies: Constipation, Nausea - Genitourinary Genitourinary: reports: Frequency - Musculoskeletal Musculoskeletal: reports: Muscle weakness - Integumentary Integumentary: reports: Dryness - Neurological Neurological: reports: General weakness - Psychiatric Psychiatric: reports: Anxiety. denies: Depression - Hematologic/Lymphatic Hematologic/Lymphatic: reports: Anemia (hgb 7.9). denies: Recurrent infections - All Other Systems All Other Systems: reports: Reviewed and negative Physical Exam - Vital Signs Temperature: 36.5 C Pulse Rate: 58 Respiratory Rate: 16 Blood Pressure: 143/75 - Physical Exam General Appearance: positive: Alert Eyes Bilateral: positive: Other (perirobital edema) ENT: positive: No signs of dehydration Neck: positive: Trachea midline Cardiovascular: positive: Regular rate & rhythm Respiratory: positive: No respiratory distress, Breath sounds nml. negative: Wheezes, Rales, Rhonchi Abdomen: positive: Soft, Distended (mild pressure but soft) Skin: positive: Pallor Extremities: positive: Pedal edema (worsening up to knees; has chronic edema) Neurologic/Psychiatric: positive: Oriented x3, Mood/affect nml, Weakness Palliative Care - POLST Patient has POLST: Yes POLST Status: DNR, Selective Treatment Pain: No pain Tiredness/Fatigue: Moderate (4-6) Drowsiness/Sedation: None Nausea: None Depression: None Anxiety: Mild (1-3) Dyspnea: Moderate (4-6) Anorexia: None Sleep: Sleeps well Constipation: No Feelings of wellbeing/Perceived Quality of Life: Good, Acceptable, No change Performance Status: Patient despite her fatigue and lower extremity edema is actually quite active. She does ambulate short distances and longer distances for activity. She is able to manage her own ADLs, and is trying to pace herself. I would put her at a PPS of 60% - Palliative Care Discussion: Patient remains fairly upbeat, still perceives her quality of life is fairly good. She does enjoy her friends and family, and doing her day-to-day activities. She is looking forward to her company, and is planning and hoping for the best with a trip and May to [place]. She does understand the seriousness of her illness, and there is very little to offer her if she and when she progresses on her current therapy regimen. Results - Lab Results Lab results reviewed: Yes Lab and Imaging Results: Her creatinine is remained stable at 1.4; BUN 50; her protein is low at 5.7, WBCs 4.4, neutrophils 11.1, hematocrit 25.3, and hemoglobin 7.9 Impression and Recommendations - Palliative Care Impression: This is a rodo 78-year-old woman with metastatic ovarian cancer, currently receiving palliative chemotherapy. She continues with fatigue, recurring anemia, and moderate symptom burden. She is working with nephrology regarding her hypertension, and fluid retention. Palliative care to continue provide support regarding symptom management, anticipatory guidance and transition to hospice when appropriate. Recommendations/Counseling Done: 1. Hypertension. Patient's blood pressures remained fairly well controlled, she is doing better with timing her furosemide earlier in the afternoon. She does get some breathlessness to her treatment, most likely with fluid retention. She is getting ready to follow-up with him, I am concerned about her increased lower extremity edema and persistence of this, though this is most likely multifactorial in origin. 2. Lower extremity edema. Patient does have support hose on, we did discuss not looking at further compression, regarding the fragility of her skin. Her edema is fairly dependent, she has not had any weight loss on her increased dose of furosemide. Her kidneys did tolerate increased dosing, she is planning to notify him, to discuss given his expertise would recommend she follow-up with him regarding dosing and medication adjustments, I will go ahead and fax her labs from today so he has some available for decision-making. Would also consider an extra dose of Lasix on the day after given her symptomology her chemotherapy. She is satisfied with this plan, will get regular compression hose and reviewed no need for special Jobst stockings at this point. 3. Anemia. Patient does present with a 7.9 hemoglobin, she has had some increased dyspnea and fatigue though not acute. She did receive 2 units last time with improvement of symptoms though she did get symptoms of fluid overload as well. Will see Dr. Manzanares's response, and recommend tracking her anemia next week, as she would like to feel well for her family visit, may benefit from 1 unit for support. Will follow up with Dr. Willingham to coordinate labs if Dr. Manzanares increases diuretic as well. 4. Advanced care planning. Patient does understand the seriousness of her illness, she is hoping for the best and is continuing to get a good response from her current regimen. She has some dyspnea and fatigue, but no pain she is keeping her bowels moving without difficulty. She is independent and continues with good functional status. She is hoping to go to [place] in May, and is expecting family through the holidays. Time Spent: 45 minutes is greater than 50% of this done in counseling regarding management of lower extremity edema, coordination of care, and anticipatory guidance.
== END 2019-03-08 10:46 | disposition home or self-care (01) ==
LOC: PC 10:45
PROVIDERS: ATTEND Nurse Practitioner Adult Health
DX: Z51.5 Encounter for palliative care (principal); C56.9 Malignant neoplasm of unspecified ovary; C79.9 Secondary malignant neoplasm of unspecified site; Z79.899 Other long term (current) drug therapy; D64.9 Anemia, unspecified; R06.02 Shortness of breath; I10 Essential (primary) hypertension; R60.0 Localized edema; Z66 Do not resuscitate
CPT/HCPCS: 99215

== ENCOUNTER 2019-03-23 08:26 | Outpatient (CLI) | payer MEDICARE, OTHER ==
[2019-03-23 09:02] LABS: BASOPHILS % (AUTO) 0.5 %; EOSINOPHILS # (AUTO) 0.1 10^3/uL (0.0-0.7); EOSINOPHILS % (AUTO) 1.6 %; HGB - HEMOGLOBIN 7.8 g/dL (12.0-16.0); LYMPHOCYTES # (AUTO) 1.8 10^3/uL (1.5-3.5); MEAN CORPUSCULAR HEMOGLOBIN 28.6 pg (27.0-31.0); MEAN CORPUSCULAR HGB CONC 30.4 g/dL (32.0-36.0); MEAN CORPUSCULAR VOLUME 94.1 fL (81.0-99.0); MEAN PLATELET VOLUME 10.2 fL (7.9-10.8); MONOCYTES # (AUTO) 0.5 10^3/uL (0.0-1.0); NEUTROPHILS % (AUTO) 45.7 %; PLT - PLATELET COUNT 136 10^3/uL (130-450); RED BLOOD COUNT 2.73 10^6/uL (4.20-5.40); RED CELL DISTRIBUTION WIDTH 15.5 % (12.0-15.0); WHITE BLOOD COUNT 4.4 x10^3/uL (4.8-10.8)
[2019-03-23 09:26] LABS: RBC MORPHOLOGY (MULTIPLE) 2+ ANISOCYTOSIS (NORMAL)
== END 2019-03-23 08:27 | disposition home or self-care (01) ==
LOC: LAB 08:26
PROVIDERS: ATTEND Nurse Practitioner Adult Health
DX: D64.81 Anemia due to antineoplastic chemotherapy (principal)
CPT/HCPCS: 36415; 85025

== ENCOUNTER 2019-04-05 10:30 | Outpatient (CLI) | payer MEDICARE, OTHER ==
--- NOTE | 2019-04-05 16:06 | CONSULTATION NOTE ---
Palliative Care Follow Up - Referral Referring Provider: Dr. Sian Willingham Time of Visit: [id number] Referral setting: [facility] [place] Referral Reason: LE edema/CKD/Met Ovarian CA - Information Sources Records reviewed: Previous records reviewed History/Review of Systems obtained from: Patient Exam limitations: No limitations - History of Present Illness Update Brief HPI Update: This is a rodo 78-year-old woman with metastatic ovarian cancer, currently receiving weekly carboplatinum/Taxol since 07/2018. She has been on multiple lines of chemotherapy previously with her original diagnosis in 03/2014, with recurrence diagnosed in 04/2015. Her GCO680 is continue to decrease, 03/29 was 140.2, down from 02/26 161.8. She continues to have some mild pancytopenia, with her current anemia hanging out at 7.8. She is recently seen Dr. Manzanares, He feels like her current renal status is acceptable, is made no further medication adj ustments, and requested follow-up if her GFR decreases less than 25. She had some follow-up questions regarding this, and feels a little bit like this is been left hanging, he did discuss the continuum of CKD, and her multiple contributing risk factors regarding this. Patient's blood pressure slightly elevated by in an acceptable range, compared to previous hypertensive episodes. Reassured that renal status can continue to be monitored, most likely is not the most significant problem she is facing at this point in time, and was satisfied with this information. Patient presents with fairly low symptom burden, she denies any pain, she does have some intermittent fatigue, though she is actually quite functional in the context she can still walk long distances, and when she is feeling good up to a mile a day. She denies any nausea, her appetite is been good, she does have shortness of breath, though this usually persistently increases with her anemia and decreased counts, she is feeling somewhat more winded but not distressed. She denies any depression or anxiety, she and her are doing quite well at home, recently they had a large gathering with family over the holidays, she found this quite chaotic though she did report it was "a fun week". Social History - Living Situation Living arrangement: At home Living Situation: With spouse/s.o. Support System: She lives at home with her rodo , who recently himself had surgery and has a serious illness. He reports he is doing well, he is quite pleased he is on the mend and wanted to be well enough to be able to care for her. They do feel like they are both doing pretty well at this point in time. [place], as well as a trip in the future to [place] in May. They have 2 daughters, and 4 grandchildren. Medications/Allergies - Medications Home Medications: Ambulatory Orders Medication Instructions Recorded Confirmed Aspirin 81 mg PO DAILY PM 02/25/14 03/29/19 Cholecalciferol (Vitamin D3) 2,000 unit PO DAILY 04/17/16 03/29/19 [Vitamin D3] Rivaroxaban [Xarelto] 20 mg PO DAILY PRN 01/13/17 03/29/19 Polyethylene Glycol 3350 [Miralax] 17 gm PO DAILY 10/20/17 03/29/19 Sennosides [Senna] 1 tab PO DAILY PRN 10/20/17 03/29/19 Multivitamin [Multivitamins] 1 tab ORAL DAILY 02/23/18 03/29/19 Atorvastatin Calcium 20 mg PO DAILY 08/10/18 03/29/19 Furosemide 40 mg PO BID 08/10/18 03/29/19 hydrALAZINE [Apresoline] 50 mg PO Q6H 01/03/19 03/29/19 carvediloL [Coreg] 25 mg PO BID 01/18/19 03/29/19 Doxazosin [Cardura] 2 mg PO BID 02/09/19 03/29/19 - Allergies Allergies/Adverse Reactions: Allergies Allergy/AdvReac Type Severity Reaction Status Date / Time Sulfa (Sulfonamide Allergy Mild Rash Verified 01/11/19 09:06 Antibiotics) sulfamethoxazole Allergy Unknown Verified 01/11/19 09:06 [From Septra] trimethoprim [From Septra] Allergy Unknown Verified 01/11/19 09:06 risedronate sodium AdvReac Cramps Verified 01/11/19 09:06 [From Actonel] Review of Systems - Constitutional Constitutional: reports: Fatigue, Weight stable. denies: Fever, Chills - Cardiovascular Cardiovascular: reports: Edema (no improvement; but not worsening), Decr. exercise tolerance - Respiratory Respiratory: reports: SOB with exertion. denies: Cough, SOB at rest - Gastrointestinal Gastrointestinal: reports: Good appetite. denies: Abdominal pain, Constipation, Nausea, Reflux/heartburn - Genitourinary Genitourinary: reports: Frequency (some pressure), Incontinence (infrequent) - Musculoskeletal Musculoskeletal: reports: Stiffness, Muscle weakness - Integumentary Integumentary: reports: Rash (RLE; mild used some calamine with relief of itching), Dryness - Neurological Neurological: reports: General weakness - Psychiatric Psychiatric: denies: Depression, Anxiety - Endocrine Endocrine: reports: Intolerance to cold - Hematologic/Lymphatic Hematologic/Lymphatic: reports: Anemia. denies: Recurrent infections - All Other Systems All Other Systems: reports: Reviewed and negative Physical Exam - Vital Signs Temperature: 36.5 C Pulse Rate: 72 Respiratory Rate: 16 O2 Saturation: 98 (ra @ rest) Blood Pressure: 138/65 - Physical Exam General Appearance: positive: No acute distress, Alert Eyes Bilateral: positive: Normal inspection, Other (periorbital edema/mild) ENT: positive: No signs of dehydration Neck: positive: No JVD, Trachea midline Cardiovascular: positive: Regular rate & rhythm Respiratory: positive: No respiratory distress, Breath sounds nml Abdomen: positive: Non-tender, Soft, Nml bowel sounds. negative: Guarding, Mass, Distended Skin: positive: Pallor, Other (diffuse light pink rash; dry no blisters; on RLE about 3-4 cm in area) Extremities: positive: Pedal edema Neurologic/Psychiatric: positive: Oriented x3, Mood/affect nml Palliative Care - POLST Patient has POLST: Yes POLST Status: DNR, Selective Treatment Pain: No pain Tiredness/Fatigue: Moderate (4-6) Drowsiness/Sedation: Mild (1-3) Nausea: None Anorexia: None Dyspnea: Moderate (4-6) Depression: None Anxiety: Mild (1-3) Feelings of wellbeing/Perceived Quality of Life: Good, Acceptable, Improved Sleep: Sleeps well Constipation: Yes, Intermittent constipation Performance Status: Patient is independent in her ADLs, she is working on her ambulation, she can walk long distances, and does push herself inside if she does not take walks. She has been active most of her life, she has mostly limited by her fatigue, and worsening breathlessness particularly with worsening anemia. - Palliative Care Discussion: Patient continues with her ongoing curiosity about how all the interactions with her multiple comorbidities are affecting each other, we did review her appointment with Dr. KENNA CACERES, and answered as best I could her questions that percolated from this. Patient does feel her current quality of life continues to be acceptable, she is quite hopeful with goals for a plan for [place] as well as a trip to [place] in May. Patient currently has good functional status, and low symptom burden. Will continue to follow with palliative care team. Results - Lab Results Lab results reviewed: Yes Impression and Recommendations - Palliative Care Impression: This is a rodo 78-year-old woman with metastatic ovarian cancer, currently receiving palliative chemotherapy with good response. She continues with fatigue, recurrent anemia requiring transfusions, resulting in shortness of breath. Her kidney function remains compromised, but stable, hypertension currently controlled though continues with some lower extremity edema. Palliative care to continue provide support regarding symptom management, anticipatory guidance, and transition to hospice when appropriate. Recommendations/Counseling Done: 1. LE edema. Patient has not had any increase in her lower extremity edema, nor improvement. Is wearing her compression hose, she does have some diffuse rash under her right lower extremity, has been instructed to use hydrocortisone cream, to manage pruritus and slight inflammation. Suspect this is multifactorial, and most likely not to improve. Her hypertension is currently controlled, as well as her kidney function remains stable, she has seen her strategic planning specialist without any changes to her regimen including diuretics. 2. Constipation. Patient does have rectal pressure secondary to tumor burden, she is been vigilant as far as keeping her bowels soft, reviewed again counseling for constipation with titration of her MiraLAX. 3. CKD. She did meet with Dr. Kent, he does not feel at this point in time she needs active management with the strategic planning specialist, should her GFR is remained stable around 31. She has been instructed to contact him if it is 25 or less, for further instructions. Counseling provided regarding addressing questions regarding her multifactorial CKD, some of the questions operculated up from their appointment, and anticipatory guidance. 4. Advanced care planning. Patient does have a completed and signed POLST with DNA R/selective treatment in her home, has been asked to bring copy in for hospital record. Her goal is to have a family vacation in May with friends and family, they will be planning her treatment schedule around this. 5. Dyspnea. Patient does get increased dyspnea with worsening anemia, her hemoglobin is managing at 7.8, she has not needed any recent transfusions, she is not scheduled for lab so for another 2 weeks. She will call if she has worsening symptoms fatigue are shortness of breath as she is quite in tune with her fluctuating status. Time Spent: 40 minutes with greater than 50% of this done in counseling and addressing questions regarding to disease, disease trajectory, symptom management, and anticipatory guidance. Plan for follow-up in a few weeks alternating with oncology support
== END 2019-04-05 10:31 | disposition home or self-care (01) ==
LOC: PC 10:30
PROVIDERS: ATTEND Nurse Practitioner Adult Health
DX: Z51.5 Encounter for palliative care (principal); Z79.899 Other long term (current) drug therapy; C56.9 Malignant neoplasm of unspecified ovary; C79.9 Secondary malignant neoplasm of unspecified site; N18.9 Chronic kidney disease, unspecified; R60.0 Localized edema; D61.818 Other pancytopenia; Z66 Do not resuscitate; R21 Rash and other nonspecific skin eruption; I12.9 Hypertensive chronic kidney disease with stage 1 through stage 4 chronic kidney disease, or unspecified chronic kidney disease; L29.9 Pruritus, unspecified; Z87.19 Personal history of other diseases of the digestive system
CPT/HCPCS: 99215

== ENCOUNTER 2019-04-26 10:32 | Outpatient (CLI) | payer MEDICARE, OTHER ==
--- NOTE | 2019-04-26 17:05 | CONSULTATION NOTE ---
Palliative Care Follow Up - Referral Referring Provider: Dr. Sina Willingham Time of Visit: [id number] Referral setting: [facility] [place] Referral Reason: LE edema/CKD/Met Ovarian CA - Information Sources Records reviewed: RN notes reviewed, Previous records reviewed History/Review of Systems obtained from: Patient, Family (Daughter and granddaughter present from [place]) Exam limitations: No limitations - History of Present Illness Update Brief HPI Update: This is a rodo 78-year-old woman with metastatic ovarian cancer, currently receiving weekly carboplatinum/Taxol since 07/2018. She has been on multiple lines of chemotherapy previous with original diagnosis in 03/2014, with her recurrence diagnosed in 04/2015. She does as a result of her multiple treatments, have some pancytopenia, with need for intermittent blood transfusions, She received 2 units on 04/19 and felt a little more perky through the holiday. She is being followed by Dr. Manzanares, with CKD stage III, her blood pressure has been in acceptable range, today it runs a little bit low. She continues to be plagued by lower extremity edema, left is from a chronic ankle injury, right presents with has lymphedema, fairly persistent despite titration of diuretics. She does present with a dull pink rash, no erythema, no signs or symptoms of cellulitis. She has been using low-dose hydrocortisone, with some effect. She does not have any pruritus with this, and is worried about the stockings causing a contact dermatitis. We did discuss in the context of her swelling, most likely is not going to improve dramatically, did express my recommendation to continue to keep some kind of compression on it, though it does seem quite annoying and uncomfortable, she does have some increased pain and discomfort in her ankle area with the swelling. Patient has just come off the holidays, she did have a enjoyable time, she is here with her daughter and granddaughter. She denies any depression or anxiety, she is quite anxious though she does have a lead on perhaps a clinical trial and treatment, she is hopeful that she would be a candidate. Past medical history includes metastatic ovarian cancer with sacral, peritoneal, breast, and spleen mets. Polyneuropathy, hyperlipidemia, osteoarthritis, and history of a PE. Social History - Living Situation Living arrangement: At home Living Situation: With spouse/s.o. Support System: Is at home with her rodo , who himself had surgery for serious illness. They have been doing fairly well, they do have 2 daughters and grandchildren who are visiting for the holidays. She is still quite hopeful for a trip in the future May to [place]. Medications/Allergies - Medications Home Medications: Ambulatory Orders Medication Instructions Recorded Confirmed Aspirin 81 mg PO DAILY PM 02/25/14 04/19/19 Cholecalciferol (Vitamin D3) 2,000 unit PO DAILY 04/17/16 04/19/19 [Vitamin D3] Rivaroxaban [Xarelto] 20 mg PO DAILY PRN 01/13/17 04/19/19 Polyethylene Glycol 3350 [Miralax] 17 gm PO DAILY 10/20/17 04/19/19 Sennosides [Senna] 1 tab PO DAILY PRN 10/20/17 04/19/19 Multivitamin [Multivitamins] 1 tab ORAL DAILY 02/23/18 04/19/19 Atorvastatin Calcium 20 mg PO DAILY 08/10/18 04/19/19 Furosemide 40 mg PO BID 08/10/18 04/19/19 hydrALAZINE [Apresoline] 50 mg PO Q6H 01/03/19 04/19/19 carvediloL [Coreg] 25 mg PO BID 01/18/19 04/19/19 Doxazosin [Cardura] 2 mg PO BID 02/09/19 04/19/19 - Allergies Allergies/Adverse Reactions: Allergies Allergy/AdvReac Type Severity Reaction Status Date / Time Sulfa (Sulfonamide Allergy Mild Rash Verified 04/19/19 08:54 Antibiotics) sulfamethoxazole Allergy Unknown Verified 04/19/19 08:54 [From Septra] trimethoprim [From Septra] Allergy Unknown Verified 04/19/19 08:54 risedronate sodium AdvReac Cramps Verified 04/19/19 08:54 [From Actonel] Review of Systems - Constitutional Constitutional: reports: Fatigue, Weight stable. denies: Fever, Chills - Eyes Eyes: reports: Vision loss, Corrective lenses - Ears, Nose & Throat Ears, Nose & Throat: denies: Mouth lesions - Cardiovascular Cardiovascular: reports: Edema (remains persistent), Decr. exercise tolerance. denies: Chest pain - Respiratory Respiratory: reports: SOB with exertion. denies: SOB at rest - Gastrointestinal Gastrointestinal: reports: Abdominal distention, Good appetite. denies: Constipation, Nausea, Reflux/heartburn - Genitourinary Genitourinary: reports: Frequency - Musculoskeletal Musculoskeletal: reports: Stiffness, Muscle weakness - Integumentary Integumentary: reports: Rash (LE right > left; using hydrocortosone cream), Dryness, Nail changes. denies: Pruritis - Neurological Neurological: reports: General weakness. denies: Dizziness - Psychiatric Psychiatric: denies: Depression, Anxiety - Hematologic/Lymphatic Hematologic/Lymphatic: reports: Anemia. denies: Recurrent infections - All Other Systems All Other Systems: reports: Reviewed and negative Physical Exam - Vital Signs Temperature: 36.6 C Pulse Rate: 66 Respiratory Rate: 18 Blood Pressure: 115/54 - Physical Exam General Appearance: positive: No acute distress, Alert Eyes Bilateral: positive: Normal inspection, Other (mild periorbital edema) ENT: positive: No signs of dehydration Neck: positive: No JVD, Trachea midline Cardiovascular: positive: Regular rate & rhythm Respiratory: positive: No respiratory distress, Breath sounds nml Abdomen: positive: Soft, Distended (mild). negative: Guarding, Mass Skin: positive: Pallor, Rash (dull pink/no erythema; reports worse with stockings wondering if having rx;) Extremities: positive: Pedal edema (2+ left (old ankle injury) worse than right up to knee) Neurologic/Psychiatric: positive: Oriented x3, Mood/affect nml, Weakness. negative: Depressed mood/affect Palliative Care - POLST Patient has POLST: Yes POLST Status: DNR, Selective Treatment Pain: Pain unchanged, Location (bilateral in ankles with swelling), Severity (1/10) Tiredness/Fatigue: Mild (1-3) Drowsiness/Sedation: Mild (1-3) Nausea: None Anorexia: None Dyspnea: Mild (1-3) Depression: Mild (1-3) Anxiety: Mild (1-3) Feelings of wellbeing/Perceived Quality of Life: Good, Acceptable Sleep: Sleeps well Constipation: No Performance Status: Patient is ambulatory, in fact does make a point to have regular walks. She does get easily winded, and has some activity tolerance but for the most part is able to manage her own ADLs. She is allowing some help with household tasks, and her is quite attentive. I would put her at a PPS of 80% - Palliative Care Discussion: Patient does understand the seriousness of her illness, but is hopeful for further quantity and quality of time. She does perceive her current quality of life is acceptable, and would be willing to explore other treatment options including clinical trials. She has "a lead" on her treatment she is interested into her son-in-law, she is waiting follow-up from oncology. Did follow-up with Dr. Willingham, currently do not have any openings, but they will be in touch with her was message provided. Patient will continue to accept treatment as long as her quality of life is acceptable, and is continue to provide benefit. Results - Lab Results Lab results reviewed: Yes Impression and Recommendations - Palliative Care Impression: This is a rodo 78-year-old woman with metastatic ovarian cancer, currently receiving palliative chemotherapy with ongoing good response. She does continue with fatigue, recurrent anemia requiring transfusions, these resulted in shortness of breath and decreased activity tolerance. Her kidney function remains compromised but stable, hypertension currently controlled, she does continue with persistent lower extremity edema. Palliative care to continue provide support regarding symptom management, anticipatory guidance, and transition to hospice when appropriate Recommendations/Counseling Done: 1. Lower extremity edema. This is continued to be persistent, no increase nor improvement. She is wearing compression hose, she does have diffuse rash, did respond some to the hydrocortisone cream, has had no further pruritus and inflammation is improved. Suspect this is multifactorial, including a diagnosis of lymphedema. We discussed various options for managing compression, particularly in the context she thinks she might be sensitive to the hose, including she could use Andrez wraps. 2. Constipation. Patient is vigilant as far as keeping her bowels soft, titration of her medications appropriately. 3. CKD. Her GFR remains fairly stable, she has been instructed to contact him if it is 25 or less, it was 27 today. Counseling again provided regarding management of chronic illness, in the setting of her current serious illness. We will continue to monitor, she will follow-up with justice court deputy clerk as indicated. 4. Metastatic ovarian cancer. Patient is pursuing clinical trial/new treatment. Patient perceives her current quality of life is acceptable, and would at this point in time consider trying something in the context of a clinical trial to prolong her quantity of life if not impacting her quality of life. Counseling provided regarding clinical trials.gov as a way to further explore other options, information provided regarding follow-up with Dr. Willingham. 5. Advanced care planning. Patient does have a completed and signed POLST with DNA R/selective treatment in her home, her goal is to have a family vacation in May with friends and family, they will be planning her treatment schedule around this. Time Spent: 30 minutes with greater than 50% of this done in counseling regarding symptom management, and anticipatory guidance, coordination of care with oncology team
== END 2019-04-26 10:33 | disposition home or self-care (01) ==
LOC: PC 10:32
PROVIDERS: ATTEND Nurse Practitioner Adult Health
DX: Z51.5 Encounter for palliative care (principal); R60.0 Localized edema; R21 Rash and other nonspecific skin eruption; K59.00 Constipation, unspecified; I12.9 Hypertensive chronic kidney disease with stage 1 through stage 4 chronic kidney disease, or unspecified chronic kidney disease; N18.3 Chronic kidney disease, stage 3 (moderate); D61.810 Antineoplastic chemotherapy induced pancytopenia; T45.1X5A Adverse effect of antineoplastic and immunosuppressive drugs, initial encounter; C78.6 Secondary malignant neoplasm of retroperitoneum and peritoneum; C79.51 Secondary malignant neoplasm of bone; C78.89 Secondary malignant neoplasm of other digestive organs; C79.81 Secondary malignant neoplasm of breast; C56.9 Malignant neoplasm of unspecified ovary; Z79.899 Other long term (current) drug therapy; Z66 Do not resuscitate
CPT/HCPCS: 99214

== ENCOUNTER 2019-06-04 08:14 | Outpatient (CLI) | payer MEDICARE, OTHER | END 2019-06-04 08:15 | disposition critical access hospital (66) | LOC: EMS 08:14 | PROVIDERS: ATTEND Surgery | DX: R06.02 Shortness of breath (principal); R53.1 Weakness; R11.2 Nausea with vomiting, unspecified; R50.9 Fever, unspecified ==

== ENCOUNTER 2019-06-04 14:51 | Outpatient (CLI) | payer MEDICARE, OTHER | END 2019-06-04 14:52 | disposition short-term general hospital (02) | LOC: EMS 14:51 | PROVIDERS: ATTEND Surgery | DX: R50.9 Fever, unspecified (principal); I50.9 Heart failure, unspecified; R06.02 Shortness of breath; R53.1 Weakness; R11.2 Nausea with vomiting, unspecified | CPT/HCPCS: A0425; A0426; A0427 ==

== ENCOUNTER 2019-06-11 09:30 | Outpatient (CLI) | payer MEDICARE, OTHER ==
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
== END 2019-06-11 09:31 | disposition home or self-care (01) ==
LOC: PC 09:30
PROVIDERS: ATTEND Nurse Practitioner Adult Health
DX: Z51.5 Encounter for palliative care (principal); D61.818 Other pancytopenia; I13.0 Hypertensive heart and chronic kidney disease with heart failure and stage 1 through stage 4 chronic kidney disease, or unspecified chronic kidney disease; N18.3 Chronic kidney disease, stage 3 (moderate); N17.9 Acute kidney failure, unspecified; I50.89 Other heart failure; J96.01 Acute respiratory failure with hypoxia; E87.6 Hypokalemia; R53.1 Weakness; K59.00 Constipation, unspecified; Z79.899 Other long term (current) drug therapy; C56.9 Malignant neoplasm of unspecified ovary; C79.51 Secondary malignant neoplasm of bone; C79.89 Secondary malignant neoplasm of other specified sites; C78.6 Secondary malignant neoplasm of retroperitoneum and peritoneum; Z86.19 Personal history of other infectious and parasitic diseases; Z59.8 Other problems related to housing and economic circumstances; Z66 Do not resuscitate
CPT/HCPCS: 99350

== ENCOUNTER 2019-07-01 12:42 | Outpatient (CLI) | payer MEDICARE, OTHER ==
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
== END 2019-07-01 12:43 | disposition home or self-care (01) ==
LOC: PC 12:42
PROVIDERS: ATTEND Nurse Practitioner Adult Health
DX: Z51.5 Encounter for palliative care (principal); D64.9 Anemia, unspecified; R19.7 Diarrhea, unspecified; R60.0 Localized edema; I50.33 Acute on chronic diastolic (congestive) heart failure; I13.0 Hypertensive heart and chronic kidney disease with heart failure and stage 1 through stage 4 chronic kidney disease, or unspecified chronic kidney disease; N18.3 Chronic kidney disease, stage 3 (moderate); R63.4 Abnormal weight loss; C79.51 Secondary malignant neoplasm of bone; C79.89 Secondary malignant neoplasm of other specified sites; C56.9 Malignant neoplasm of unspecified ovary; R53.1 Weakness; Z79.899 Other long term (current) drug therapy; Z79.82 Long term (current) use of aspirin; Z66 Do not resuscitate
CPT/HCPCS: 99214

== ENCOUNTER 2019-07-09 13:00 | Outpatient (CLI) | payer MEDICARE, OTHER | END 2019-07-09 23:59 | disposition home or self-care (01) | LOC: LAB.R 13:00 | PROVIDERS: ATTEND Family Medicine | DX: N39.0 Urinary tract infection, site not specified (principal) | CPT/HCPCS: 87086; 87181 ==

== ENCOUNTER 2019-07-22 13:45 | Outpatient (CLI) | payer MEDICARE, OTHER ==
--- NOTE | 2019-07-28 16:43 | CONSULTATION NOTE ---
Palliative Care Follow Up - Referral Time of Visit: 9288-4074 Referral setting: Other (TELEMEDICINE) Medications/Allergies - Medications Home Medications: Ambulatory Orders Medication Instructions Recorded Confirmed Aspirin 81 mg PO DAILY PM 02/25/14 07/22/19 Cholecalciferol (Vitamin D3) 2,000 unit PO DAILY 04/17/16 07/22/19 [Vitamin D3] Sennosides [Senna] 1 tab PO DAILY PRN 10/20/17 07/22/19 polyethylene glycoL 3350 [Miralax] 17 gm PO DAILY PRN 10/20/17 07/22/19 Multivitamin [Multivitamins] 1 tab ORAL DAILY 02/23/18 07/22/19 Atorvastatin Calcium 20 mg PO DAILY 08/10/18 07/22/19 Furosemide 80 mg PO DAILY 08/10/18 07/22/19 carvediloL [Coreg] 25 mg PO BID 01/18/19 07/22/19 Doxazosin [Cardura] 2 mg PO BID 02/09/19 07/22/19 Hydralazine HCl 100 mg PO TID 06/11/19 07/22/19 Potassium Chloride [K-Dur] 20 meq PO DAILY 06/11/19 07/22/19 Spironolactone 25 mg PO DAILY 06/11/19 07/22/19 Furosemide [Lasix] 40 mg PO DAILY PRN 06/28/19 07/22/19 Acetaminophen [Tylenol] 650 mg PO Q4HR PRN MDD 3000 mg 07/01/19 07/22/19 Cefuroxime Axetil [Cefuroxime] 250 mg PO BID MDD 5 days 07/22/19 07/22/19 - Allergies Allergies/Adverse Reactions: Allergies Allergy/AdvReac Type Severity Reaction Status Date / Time Sulfa (Sulfonamide Allergy Mild Rash Verified 07/19/19 09:09 Antibiotics) sulfamethoxazole Allergy Unknown Verified 07/19/19 09:09 [From Septra] trimethoprim [From Septra] Allergy Unknown Verified 07/19/19 09:09 risedronate sodium AdvReac Cramps Verified 07/19/19 09:09 [From Actonel]
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
== END 2019-07-22 13:46 | disposition home or self-care (01) ==
LOC: PC 13:45
PROVIDERS: ATTEND Nurse Practitioner Adult Health
DX: Z51.5 Encounter for palliative care (principal); R53.83 Other fatigue; N18.4 Chronic kidney disease, stage 4 (severe); D72.829 Elevated white blood cell count, unspecified; D63.0 Anemia in neoplastic disease; R06.02 Shortness of breath; R63.4 Abnormal weight loss; R19.7 Diarrhea, unspecified; R53.1 Weakness; R60.0 Localized edema; I50.9 Heart failure, unspecified; C56.9 Malignant neoplasm of unspecified ovary; C79.51 Secondary malignant neoplasm of bone; C79.89 Secondary malignant neoplasm of other specified sites; Z79.899 Other long term (current) drug therapy; Z79.82 Long term (current) use of aspirin; Z87.440 Personal history of urinary (tract) infections; Z66 Do not resuscitate
CPT/HCPCS: 99215

== ENCOUNTER 2019-07-28 15:00 | Outpatient (CLI) | payer MEDICARE, OTHER ==
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
== END 2019-07-28 15:01 | disposition home or self-care (01) ==
LOC: PC 15:00
PROVIDERS: ATTEND Nurse Practitioner Adult Health
DX: Z51.5 Encounter for palliative care (principal); R53.83 Other fatigue; D72.829 Elevated white blood cell count, unspecified; N18.4 Chronic kidney disease, stage 4 (severe); D63.0 Anemia in neoplastic disease; I50.9 Heart failure, unspecified; R06.02 Shortness of breath; R11.2 Nausea with vomiting, unspecified; R63.0 Anorexia; R63.4 Abnormal weight loss; R32 Unspecified urinary incontinence; R53.1 Weakness; F41.9 Anxiety disorder, unspecified; C56.9 Malignant neoplasm of unspecified ovary; C79.51 Secondary malignant neoplasm of bone; C78.89 Secondary malignant neoplasm of other digestive organs; C79.81 Secondary malignant neoplasm of breast; C78.6 Secondary malignant neoplasm of retroperitoneum and peritoneum; Z79.899 Other long term (current) drug therapy; Z79.82 Long term (current) use of aspirin; Z87.440 Personal history of urinary (tract) infections; Z66 Do not resuscitate